=== PATIENT | male | born 1950 | race Caucasian/White ===

== ENCOUNTER 2022-01-10 14:35 | Outpatient (REF) | payer MEDICARE, OTHER, SELFPAY ==
[2022-01-10 15:35] LABS: Estimated Average Glucose 100 mg/dL; Hemoglobin A1c % 5.1 %
[2022-01-10 15:50] LABS: Alanine Aminotransferase 21 U/L (0-40); Albumin Level 4.1 g/dL (3.5-5.0); Alkaline Phosphatase 57 U/L (39-117); Anion Gap 10 (12-20); Aspartate Amino Transferase 29 U/L (5-37); Bilirubin Total 0.7 mg/dL (0.0-1.0); Blood Urea Nitrogen 14 mg/dL (9-16); Calcium 9.5 mg/dL (8.4-10.2); Carbon Dioxide 29 mmol/L (22-29); Chloride 103 mmol/L (96-108); Estimated Glomerular Filt Rate 47; Glucose Random 93 mg/dL (60-115); Magnesium 2.2 mg/dL (1.6-2.6); Potassium 4.4 mmol/L (3.3-5.1); Sodium 138 mmol/L (135-145); Total Protein 6.6 g/dL (6.5-8.0)
[2022-01-10 16:11] LABS: Free T4 (Free Thyroxine) 1.04 ng/dL (0.71-1.85); Thyroid Stimulating Hormone 0.42 uIU/mL (0.32-4.0)
[2022-01-10 16:23] LABS: Folate 19.6 ng/mL (> or = 4.0); Vitamin B12 288 pg/mL (200-900)
[2022-01-16 10:51] LABS: Lamotrigine Lamictal 3.4 mcg/mL (4.0-18.0)
== END 2022-01-10 14:36 | disposition home or self-care (01) ==
LOC: HO.LAB 14:35
PROVIDERS: PCP Internal Medicine; Visit Provider Psychiatry & Neurology Psychiatry
DX: F90.0 Attention-deficit hyperactivity disorder, predominantly inattentive type (principal); G62.9 Polyneuropathy, unspecified; Z79.899 Other long term (current) drug therapy
CPT/HCPCS: 36415; 80053; 80175; 82607; 82746; 83036; 83735; 84439; 84443

== ENCOUNTER → 2022-10-16 09:58 | Outpatient (BNVA) | payer MEDICARE, OTHER, SELFPAY | PROVIDERS: PCP Internal Medicine; Visit Provider Psychiatry & Neurology Psychiatry | DX: F31.9 Bipolar disorder, unspecified (principal); F90.9 Attention-deficit hyperactivity disorder, unspecified type; F41.1 Generalized anxiety disorder; F14.11 Cocaine abuse, in remission; I10 Essential (primary) hypertension | CPT/HCPCS: 90833; 99212 ==

== ENCOUNTER → 2023-01-14 14:14 | Outpatient (BNVA) | payer MEDICARE, OTHER, SELFPAY | PROVIDERS: PCP Internal Medicine; Visit Provider Psychiatry & Neurology Psychiatry | DX: F41.1 Generalized anxiety disorder (principal); I10 Essential (primary) hypertension; F90.9 Attention-deficit hyperactivity disorder, unspecified type; F42.9 Obsessive-compulsive disorder, unspecified | CPT/HCPCS: 90833; 99212 ==

== ENCOUNTER 2023-04-10 13:00 | Outpatient (AMB) | payer MEDICARE, OTHER, SELFPAY ==
--- NOTE | 2023-04-10 13:03 | MHC.OFFVISPS ---
Intake Intake Visit Reasons: Depression Allergies No Known Allergies Allergy (Verified 12/24/22 22:37) Medication List - Last Reconciled 04/10/23 by Dylan Hastings MD amlodipine 5 mg PO gabapentin 600 mg PO TID guanfacine 2 mg PO BEDTIME lamotrigine 300 mg (2 x 150 mg) PO DAILY lisinopril mg PO lorazepam 0.5 - 1 mg (0.5 - 1 x 1 mg) PO DAILY PRN trazodone 100 mg PO BEDTIME HPI- Psychiatric Chief Complaint: Depression HPI Narrative: Pt has been revved up concerned about sexual fx no ejaculation when he has sex he became preoccupied with this somewhat more impulsive did see Dr. Gonzalez min his urologist recently. This has been a gradual issue and he was blaming his partner for the lack of and ejaculate in and he became preoccupied loss of his sexual functioning and his identity as male. Mood otherwise generally okay periods of agitation today alonzo impulsivity usually very helped by guanfacine Past Psychiatric History: The patient has a history of ADHD history of impulsivity past impulsive behaviors history of cocaine and alcohol use has been stable on a combination of guanfacine Lamictal Mental Status Exam Mental Status Exam Narrative: Mental Status Exam Narrative: Appearance: Casually dressed Behavior: Cooperative appropriate psychomotor: inc energy Speech: mildly pressured Thought proccess goal-directed perseveration regarding sexual functioning aging Thought content: Future oriented tends to worry and ruminate ongoing Mood: Anxious Affect: Appropriate to mood full affect SI:denies HI:denies VH/AH:none Delusions: None Insight/judgment: Insight and judgment at times impaired regarding sexual impulsivity Memory/cog: Intact Assessment and Plan Assessment & Plan (1) Generalized anxiety disorder: Status: Acute Code(s): F41.1 - Generalized anxiety disorder (2) Bipolar disorder, unspecified: Status: Acute Code(s): F31.9 - Bipolar disorder, unspecified (3) ADHD: Status: Acute Code(s): F90.9 - Attention-deficit hyperactivity disorder, unspecified type Plan Patient generally stable needed lot of education regarding sexual functioning with the aging difficulty with decreased ejaculate urged patient to have an honest discussion with his urologist. Patient did have episode of sexual impulsivity which led him to a potentially dangerous situation in the past would been associated with drugs and alcohol. Strongly urged patient to look at his behavior and potential risks of drugs and alcohol if he were to return to that environment in mind set patient does state he continues to be sober he is on a combination gabapentin for neuropathy which hopefully will also help with anxiety impulsivity lamotrigine guanfacine which has been quite helpful for impulsivity and low-dose p.r.n. lorazepam with no evidence of abuse or tolerance Counseling and coordination of Care Pt. Self Management counseling: Breathing, Exercise and Behavior activation Details-Self Mgmt counseling: Needed much reassurance Education regarding sexual functioning with aging impact potentially of medications in ways to hopefully psychologically and physically adapt to the aging process. Continue regular walking her trance of other healthy behaviors. Patient in general is much less impulsive agitated better ability to stay present sits still than he has for most of his life Diagnosis and Prognosis Counseling: Impact of diagnosis on life functions and Adequacy of current interventions Details: I spent [38] minutes reviewing the record, seeing the patient and documenting in the medical record. Counseling provided to the patient/caregiver as outlined below. Addressed patient/caregiver concerns regarding current medication regime including effective adherence. Addressed patient/caregiver concerns regarding diagnosis and prognosis including accuracy of diagnosis, prognosis over time, impact of diagnosis. Addressed patient/caregiver concerns regarding impact of recent stressors. 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 HAD [place] AND QUESTION OF CVA IN THE PAST STATUS POST COCAINE INTOXICATION HAS BEEN SOBER Trauma History: NA Coding Level of Care Code Est Pt Level 3 (17972) Therapy 30m w/E&M (07823) Diagnoses Generalized anxiety disorder F41.1 Bipolar disorder, unspecified F31.9 ADHD F90.9
== END 2023-04-10 13:48 | disposition home or self-care (01) ==
LOC: HO.HOP 13:00
PROVIDERS: PCP Internal Medicine; Visit Provider Psychiatry & Neurology Psychiatry
DX: F41.1 Generalized anxiety disorder (principal); F31.9 Bipolar disorder, unspecified; F90.9 Attention-deficit hyperactivity disorder, unspecified type
CPT/HCPCS: 90833; 99213

== ENCOUNTER → 2023-04-10 13:00 | Outpatient (BNVA) | payer MEDICARE, OTHER, SELFPAY | PROVIDERS: PCP Internal Medicine; Visit Provider Psychiatry & Neurology Psychiatry | DX: F31.9 Bipolar disorder, unspecified (principal); F41.1 Generalized anxiety disorder; F90.9 Attention-deficit hyperactivity disorder, unspecified type | CPT/HCPCS: 90833; 99212 ==

== ENCOUNTER 2023-10-30 16:49 | Outpatient (AMB) | payer MEDICARE, OTHER, SELFPAY ==
--- NOTE | 2023-10-30 15:07 | MHC.OFFVISPS ---
Intake Intake Visit Reasons: Depression Allergies No Known Allergies Allergy (Verified 12/24/22 22:37) HPI- Psychiatric Chief Complaint: Depression HPI Narrative: Patient with history of mood instability impulsive behavior prior history of substance abuse. Patient has generally been stable there some recent issues of sexual impulsivity does not appear manic denies current substance not overly depressed. Patient has significant history of ADHD with impulsivity Has chronically associated sexual relations more for been type encounters Past Psychiatric History: The patient has a history of ADHD history of impulsivity past impulsive behaviors history of cocaine and alcohol use has been stable on a combination of guanfacine Lamictal Mental Status Exam Mental Status Exam Narrative: Mental Status Exam Narrative: Appearance: Casually dressed Behavior: Cooperative psychomotor: inc energy Speech: mildly pressured Thought proccess goal-directed perseveration Thought content: Future oriented tends to worry about sexual functioning recent behavior Mood: Anxious Affect: Appropriate to mood full affect SI:denies HI:denies VH/AH:none Delusions: None Insight/judgment: Insight and judgment at times impaired regarding some behavior Memory/cog: Intact Assessment and Plan Assessment & Plan (1) OCD (obsessive compulsive disorder): Status: Acute Code(s): F42.9 - Obsessive-compulsive disorder, unspecified (2) Generalized anxiety disorder: Status: Acute Code(s): F41.1 - Generalized anxiety disorder (3) ADHD: Status: Acute Code(s): F90.9 - Attention-deficit hyperactivity disorder, unspecified type (4) Bipolar disorder, unspecified: Status: Acute Code(s): F31.9 - Bipolar disorder, unspecified Plan Discussed impulsivity use of guanfacine to decrease impulsivity certain recent problematic and judgmental behaviors. Patient was able to hear continue chronic exercise which quite helpful Lamictal 300 mg chest regularly use clubbing half tab morning patient appears to have some anxiety regarding aging Medications: Refilled lamotrigine 300 mg (2 x 150 mg) PO DAILY 180 tabs 1RF guanfacine 1 bedtime 1/2 tab daily prn 2 mg PO BEDTIME 135 tabs 1RF Counseling and coordination of Care Pt. Self Management counseling: Breathing and Exercise Medication management counseling: Effectiveness, Side effects and Dosing range Diagnosis and Prognosis Counseling: Problematic behaviors secondary to diagnosis and Adequacy of current interventions Details: I spent [35] minutes reviewing the record, seeing the patient and documenting in the medical record. Counseling provided to the patient/caregiver as outlined below. Addressed patient/caregiver concerns regarding current medication regime including effective adherence. Addressed patient/caregiver concerns regarding diagnosis and prognosis including accuracy of diagnosis, prognosis over time, impact of diagnosis. Addressed patient/caregiver concerns regarding impact of recent stressors. 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 HAD [place] AND QUESTION OF CVA IN THE PAST STATUS POST COCAINE INTOXICATION HAS BEEN SOBER Trauma History: NA Coding Level of Care Code Est Pt Level 3 (47704) Therapy 30m w/E&M (97862) Diagnoses OCD (obsessive compulsive disorder) F42.9 Generalized anxiety disorder F41.1 ADHD F90.9 Bipolar disorder, unspecified F31.9
== END 2023-10-30 16:50 | disposition home or self-care (01) ==
LOC: HO.HOP 16:49
PROVIDERS: PCP Internal Medicine; Visit Provider Psychiatry & Neurology Psychiatry
DX: F42.9 Obsessive-compulsive disorder, unspecified (principal); F41.1 Generalized anxiety disorder; F90.9 Attention-deficit hyperactivity disorder, unspecified type; F31.9 Bipolar disorder, unspecified
CPT/HCPCS: 90833; 99213

== ENCOUNTER → 2023-10-30 16:49 | Outpatient (BNVA) | payer MEDICARE, OTHER, SELFPAY | PROVIDERS: PCP Internal Medicine; Visit Provider Psychiatry & Neurology Psychiatry | DX: F42.9 Obsessive-compulsive disorder, unspecified (principal); F41.1 Generalized anxiety disorder; F90.9 Attention-deficit hyperactivity disorder, unspecified type; F31.9 Bipolar disorder, unspecified | CPT/HCPCS: 99212 ==

== ENCOUNTER 2024-01-29 13:42 | Outpatient (AMB) | payer MEDICARE, OTHER, SELFPAY ==
--- NOTE | 2024-01-29 14:34 | MHC.OFFVISPS ---
Intake Intake Visit Reasons: Depression Allergies No Known Allergies Allergy (Verified 12/24/22 22:37) HPI- Psychiatric Chief Complaint: Depression HPI Narrative: Patient seen psychiatric follow-up. The patient's mood has generally been stable future oriented continues to miss older life associated with drinking and has sexual functioning but remained stable and sober. Past history of impulsive behavior generally held in check. He does enjoy daily walking and time in nature which when he becomes tired is quite satisfying for him he remains on Lamictal guanfacine intermittent use of lorazepam for anxiety agitation denies any active drinking or cocaine use Past Psychiatric History: The patient has a history of ADHD history of impulsivity past impulsive behaviors history of cocaine and alcohol use has been stable on a combination of guanfacine Lamictal Mental Status Exam Mental Status Exam Narrative: Mental Status Exam Narrative: Appearance: Casually dressed Behavior: Cooperative psychomotor: inc energy Speech: mildly pressured Thought proccess goal-directed Thought content: Future orient perseveration regarding his past and managing his present anxiety and impulsivity with different techniques Mood: Good some anxiety Affect: Appropriate to mood full affect SI:denies HI:denies VH/AH:none Delusions: None Insight/judgment: Insight and judgment at times impaired regarding potential risky behavior Memory/cog: Intact Assessment and Plan Assessment & Plan (1) OCD (obsessive compulsive disorder): Status: Acute Code(s): F42.9 - Obsessive-compulsive disorder, unspecified (2) Generalized anxiety disorder: Status: Acute Code(s): F41.1 - Generalized anxiety disorder (3) Bipolar disorder, unspecified: Status: Acute Code(s): F31.9 - Bipolar disorder, unspecified Plan Continue lamotrigine trazodone guanfacine patient also on gabapentin for neuropathy discussed interpersonal issues in relationship to his marriage Medications: Refilled lamotrigine 300 mg (2 x 150 mg) PO DAILY 180 tabs 1RF trazodone 100 mg PO BEDTIME 90 tabs 1RF Counseling and coordination of Care Pt. Self Management counseling: General coping skills Medication management counseling: Effectiveness and Side effects Diagnosis and Prognosis Counseling: Adequacy of current interventions Details: I spent [37] minutes reviewing the record, seeing the patient and documenting in the medical record. Counseling provided to the patient/caregiver as outlined below. Addressed patient/caregiver concerns regarding current medication regime including effective adherence. Addressed patient/caregiver concerns regarding diagnosis and prognosis including accuracy of diagnosis, prognosis over time, impact of diagnosis. Addressed patient/caregiver concerns regarding impact of recent stressors. 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 HAD [place] AND QUESTION OF CVA IN THE PAST STATUS POST COCAINE INTOXICATION HAS BEEN SOBER Trauma History: NA Coding Level of Care Code Est Pt Level 3 (79969) Therapy 30m w/E&M (15078) Diagnoses OCD (obsessive compulsive disorder) F42.9 Generalized anxiety disorder F41.1 Bipolar disorder, unspecified F31.9
== END 2024-01-29 17:07 | disposition home or self-care (01) ==
LOC: HO.HOP 13:42
PROVIDERS: PCP Internal Medicine; Visit Provider Psychiatry & Neurology Psychiatry
DX: F42.9 Obsessive-compulsive disorder, unspecified (principal); F41.1 Generalized anxiety disorder; F31.9 Bipolar disorder, unspecified
CPT/HCPCS: 90833; 99213

== ENCOUNTER → 2024-01-29 13:42 | Outpatient (BNVA) | payer MEDICARE, OTHER, SELFPAY | PROVIDERS: PCP Internal Medicine; Visit Provider Psychiatry & Neurology Psychiatry | DX: F42.9 Obsessive-compulsive disorder, unspecified (principal); F41.1 Generalized anxiety disorder; F31.9 Bipolar disorder, unspecified | CPT/HCPCS: 99212 ==

== ENCOUNTER 2024-05-14 13:53 | Outpatient (AMB) | payer MEDICARE, OTHER, SELFPAY ==
--- OUTSIDE RECORDS SUMMARY | 2024-05-14 13:54 | XMS_ITS | Continuity of Care Document ---
Author Organization [facility] Address [address] [facility], [address] Floor, [address] [place] [phone]- Care Team Providers Care Party Supply Specialist Name Role Phone Matthias GAFFNEY, Lucian Alarcon Primary Care Physician Encounter [facility] Date(s): 10/31/23 - 11/30/23 [facility] [address] [facility], [address]rd Floor, [address] [place] [id number] Allergies, Adverse Reactions, Alerts No Known Allergies Immunizations Given and Recorded Vaccine Date Status Refusal Reason SARS-CoV-2 (COVID-19) mRNA BNT-162b2 vac 09/11/21 Recorded SARS-CoV-2 (COVID-19) mRNA BNT-162b2 vac 01/10/21 Recorded SARS-CoV-2 (COVID-19) mRNA BNT-162b2 vac 12/20/20 Recorded influenza virus vaccine, inactivated 07/19/21 Vu rded influenza virus vaccine, inactivated 08/07/18 Vu rded influenza virus vaccine, inactivated 07/07/18 Vu rded influenza virus vaccine, inactivated 07/11/17 Vu rded influenza virus vaccine, inactivated 1 07/07/17 Re corded influenza virus vaccine, inactivated 07/17/16 Vu rded influenza virus vaccine, inactivated 2 08/07/13 Gi qamar influenza virus vaccine, inactivated 06/22/09 Give n zoster vaccine, inactivated 09/04/20 Recorded zoster vaccine, inactivated 05/21/20 Recorded zoster vaccine, inactivated 08/02/19 Recorded Influenza Virus Vaccine (oldterm) 07/07/20 Recorde d Influenza Virus Vaccine (oldterm) 07/07/19 Recorde d Influenza Virus Vaccine (oldterm) 3 07/26/08 Given Influenza Virus Vaccine (oldterm) 4 07/29/07 Given pneumococcal 23-valent vaccine 12/30/19 Given pneumococcal 23-valent vaccine 10/20/14 Given Prevnar Inj (oldterm) 12/20/17 Given tetanus/diphtheria/pertussis, acel(Tdap) 07/12/17 Recorded Influenza Vaccine (oldterm) 5 07/02/15 Recorded Influenza Vaccine (oldterm) 6 07/02/15 Recorded Fluarix (oldterm) 7 07/17/14 Recorded Zostavax (oldterm) 08/17/13 Recorded Fluzone (oldterm) 07/13/11 Given FluLaval (oldterm) 08/11/10 Given Tet/Diphth/Acel, Pertussis (oldterm) 11/02/09 Give n diphtheria-tetanus toxoids (DT) 05/30/99 Given 1Result Comment: [12/13/2017] [facility] 3Admin Note: [employer] P[employer] 4Admin Note: SANOFI PASTEUR [facility] 6[facility] 7Result Comment: [07/22/2014] [facility] Medications amLODIPine 5 mg oral tablet 1 tablet, By Mouth, Daily, # 90 tablet, 1 Refills, Maintenance, 02/28/23 10:47:00 EDT, [facility] Mail Delivery, 183, cm, 01/31/23 15:19:00 EDT, Height Start Date: 02/28/23 Status: Ordered aspirin 81 mg oral tablet 81, mg, 1, tablet, By Mouth, Daily, 0, 0, 10/20/08 8:13:28, Print HARRY Number, [id number], Constant Indicator Start Date: 10/20/08 Status: Ordered diclofenac sodium 75 mg oral delayed release tablet 1 tablet = 75 mg, By Mouth, 2 times a day, # 14 tablet, 0 Refills, Maintenance, 06/20/23 13:50:00 EDT, EC Tablet, [facility]/pharmacy #[id number], Partial fill upon patient request if the prescription is for a schedule II opioid drug., 183, cm, 06/05/23 11:26:00 E... Start Date: 06/20/23 Stop Date: 06/27/23 Status: Ordered docusate sodium 100 mg oral capsule 100 mg, 1, capsule, By Mouth, 2 times a day, PRN, # 14 capsule, Refills 0, Tot. Refills 0, Maintenance, for constipation, 06/12/23 9:34:00 EDT, Route to Pharmacy Electronically, [facility]/pharmacy #[id number], Partial fill upon patient request if the prescription... Start Date: 06/12/23 Stop Date: 06/19/23 Status: Ordered gabapentin 800 mg oral tablet 1 tablet, By Mouth, 3 times a day, # 270 tablet, 1 Refills, Maintenance, 05/13/23 13:47:00 EDT, [facility] Mail Delivery, 183, cm, 04/04/23 8:06:00 EDT, Height Start Date: 05/13/23 Status: Ordered guanFACINE 2 mg oral tablet 1 tablet = 2 mg, By Mouth, Daily at bedtime, # 30 tablet, 0 Refills, Maintenance, 09/27/22 14:41:00EST, Tablet, Partial fill upon patient request if the prescription is for a schedule II opioid drug. Start Date: 09/27/22 Status: Ordered lamotrigine 150 mg oral tablet 1 tablet = 150 mg, By Mouth, 2 times a day, # 60 tablet, 0 Refills, Maintenance, 09/27/22 14:42:00 EST, Tablet, Partial fill upon patient request if the prescription is for a schedule II opioid drug. Start Date: 09/27/22 Status: Ordered lisinopril 30 mg oral tablet 1 tablet, By Mouth, Daily, # 90 tablet, 1 Refills, Maintenance, 11/25/23 0:55:00 EST, [facility] Mail Delivery, 183, cm, 11/11/23 15:35:00 EST, Height Start Date: 11/25/23 Status: Ordered LORazepam 1 mg oral tablet TAKE 1/2-1 TABLET ORALLY DAILY NEEDED FOR ANXIETY *DNF UNTIL 08/27 Start Date: 09/27/22 Status: Ordered multivitamin Therapeutic Multiple Vitamins oral tablet 1, tablet, By Mouth, Daily, 0, 0, 10/20/08 8:14:05, Print HARRY Number, [id number], Constant Indicator Start Date: 10/20/08 Status: Ordered pantoprazole 40 mg oral delayed release tablet 1 tablet, By Mouth, 2 times a day, # 180 tablet, 0 Refills, Maintenance, 11/03/23 18:28:00 EST, 183, cm, 06/05/23 11:26:00 EDT, Height Start Date: 11/03/23 Status: Ordered traZODone 100 mg oral tablet Daily at bedtime, Refills 0, Maintenance, 09/27/22 14:42:00 EST, Partial fill upon patient request if the prescription is for a schedule II opioid drug. Start Date: 09/27/22 Status: Ordered Vitamin C = 500 mg, 0 Refills, Maintenance, 12/03/12 16:55:50 Start Date: 12/03/12 Status: Ordered Vitamin D3 2000 intl units oral capsule 1 capsule = 2,000 International_Units, By Mouth, Daily, 0 Refills, Maintenance, 05/23/15 8:31:57 Start Date: 05/23/15 Status: Ordered Problem List Condition Confirmation Course Effective Dates Status H ealth Status Informant Gastroesophageal reflux disease with hiatal hernia Confirmed Active Headache disorder Confirmed Active HTN (hypertension) Confirmed 11/07/09 Active Skin lesion of face Confirmed Active Obstructive sleep apnea syndrome Confirmed 10/27/05 Active Overweight Confirmed Active Neuropathic pain of lower extremity, bilateral. EMG abnormal 12/2021. On gabapentin Confirmed Active Peyronie's Disease Confirmed 1998 Active Social History Social History Type Response Smoking Status Never smoker entered on: 10/19/14 Sex Patient Care team information Care Team Personnel Name: Lucian Rizzo MD Position: S Physician - Primary Care Member Role: PCP Address: Address: [address] [place] [phone]- Care Team Related Persons Name: JOON GONZALEZ Address: home [address] [place] [id number] Name: MOO GONZALEZ Address: home [address] [place] [address] Name: TASHIA LEÓN Address: home [address] [place] [address]
--- OUTSIDE RECORDS SUMMARY | 2024-05-14 13:54 | XMS_ITS | Continuity of Care Document ---
Author Organization [facility] Address [address] [place] [phone]- Care Team Providers Care Senior Game Advisor Name Role Phone Matthias GAFFNEY, Lucian Alarcon Primary Care Physician [facility] Date(s): 07/14/21 - 08/13/21 [facility] [address] [place] [phone] [place] Allergies, Adverse Reactions, Alerts Substance Reaction Severity Status NKA Active Immunizations Given and Recorded Vaccine Date Status Refusal Reason SARS-CoV-2 (COVID-19) mRNA BNT-162b2 vac 01/10/21 Recorded SARS-CoV-2 (COVID-19) mRNA BNT-162b2 vac 12/20/20 Recorded zoster vaccine, inactivated 09/04/20 Recorded zoster vaccine, inactivated 08/02/19 Recorded Influenza Virus Vaccine (oldterm) 07/07/20 Recorde d Influenza Virus Vaccine (oldterm) 07/07/19 Recorde d Influenza Virus Vaccine (oldterm) 1 07/26/08 Given Influenza Virus Vaccine (oldterm) 2 07/29/07 Given pneumococcal 23-valent vaccine 12/30/19 Given pneumococcal 23-valent vaccine 10/20/14 Given influenza virus vaccine, inactivated 08/07/18 Vu rded influenza virus vaccine, inactivated 07/07/18 Vu rded influenza virus vaccine, inactivated 07/11/17 Vu rded influenza virus vaccine, inactivated 3 07/07/17 Re corded influenza virus vaccine, inactivated 07/17/16 Vu rded influenza virus vaccine, inactivated 4 08/07/13 Gi qamar influenza virus vaccine, inactivated 06/22/09 Give n Prevnar Inj (oldterm) 12/20/17 Given tetanus/diphtheria/pertussis, acel(Tdap) 07/12/17 Recorded Influenza Vaccine (oldterm) 5 07/02/15 Recorded Influenza Vaccine (oldterm) 6 07/02/15 Recorded Fluarix (oldterm) 7 07/17/14 Recorded Zostavax (oldterm) 08/17/13 Recorded Fluzone (oldterm) 07/13/11 Given FluLaval (oldterm) 08/11/10 Given Tet/Diphth/Acel, Pertussis (oldterm) 11/02/09 Give n diphtheria-tetanus toxoids (DT) 05/30/99 Given 1Admin Note: Sanofi Pasteur 2Admin Note: SANOFI PASTEUR 3Result Comment: [12/13/2017] [facility] 7Result Comment: [07/22/2014] [facility] Medications aspirin 81 mg oral tablet 81, mg, 1, tablet, By Mouth, Daily, 0, 0, 10/20/08 8:13:28, Print HARRY Number, [id number], Constant Indicator Start Date: 10/20/08 Status: Ordered Biotin By Mouth, Daily, 0 Refills, Maintenance, 05/23/15 8:30:16 Start Date: 05/23/15 Status: Ordered Fish Oil = 1,000 mg, By Mouth, 0 Refills, Maintenance Start Date: 12/03/12 Status: Ordered multivitamin Therapeutic Multiple Vitamins oral tablet 1, tablet, By Mouth, Daily, 0, 0, 10/20/08 8:14:05, Print HARRY Number, [id number], Constant Indicator Start Date: 10/20/08 Status: Ordered trazodone 100 mg oral tablet 100, mg, 1, tablet, By Mouth, Daily at bedtime, 0, 0, 10/20/08 8:13:45, Print HARRY Number, [id number], Constant Indicator Start Date: 10/20/08 Status: Ordered Vitamin C = 500 mg, 0 Refills, Maintenance, 12/03/12 16:55:50 Start Date: 12/03/12 Status: Ordered Vitamin D3 2000 intl units oral capsule 1 capsule = 2,000 International_Units, By Mouth, Daily, 0 Refills, Maintenance, 05/23/15 8:31:57 Start Date: 05/23/15 Status: Ordered Problem List Condition Effective Dates Status Health Status Inform ant Gastroesophageal reflux dise ase with hiatal hernia(Confirmed) Active Headache disorder(Confirmed) Active HTN (hypertension)(Confirmed) 11/07/09 Active Skin lesion of face(Confirmed) Active Obstructive sleep apnea syndrome(Confirmed) 10/27/05 Active Overweight(Confirmed) Active Neuropathic pain of lower ex tremity, bilateral. Declines EMG(Confirmed) Active Peyronie's Disease(Confirmed) 1998 Active Social History Social History Type Response Smoking Status Never smoker entered on: 10/19/14 Sex
--- OUTSIDE RECORDS SUMMARY | 2024-05-14 13:54 | XMS_ITS | Continuity of Care Document ---
Author Organization [facility] romy Address [address] [place], [place] [address] ve [address] [place] [address]- Care Team Providers Care Gas Turbine Powerplant Mechanic Name Role Phone Lucian Rizzo MD Primary Care Physician [facility] Date(s): 09/23/19 - 11/04/19 [facility] [address] [place] [address]- [facility] Attending Physician: Dang Putnam Referring Physician: Lucian Rizzo MD Allergies, Adverse Reactions, Alerts Substance Reaction Severity Status NKA Active Immunizations Given and Recorded Vaccine Date Status Refusal Reason influenza virus vaccine, inactivated 07/07/18 Vu rded influenza virus vaccine, inactivated 1 07/07/17 Re corded influenza virus vaccine, inactivated 07/17/16 Vu rded influenza virus vaccine, inactivated 2 08/07/13 Gi qamar influenza virus vaccine, inactivated 06/22/09 Give n Prevnar Inj (oldterm) 12/20/17 Given Influenza Vaccine (oldterm) 3 07/02/15 Recorded Influenza Vaccine (oldterm) 4 07/02/15 Recorded pneumococcal 23-valent vaccine 10/20/14 Given Fluarix (oldterm) 5 07/17/14 Recorded Zostavax (oldterm) 08/17/13 Recorded Fluzone (oldterm) 07/13/11 Given FluLaval (oldterm) 08/11/10 Given Tet/Diphth/Acel, Pertussis (oldterm) 11/02/09 Give n Influenza Virus Vaccine (oldterm) 6 07/26/08 Given Influenza Virus Vaccine (oldterm) 7 07/29/07 Given diphtheria-tetanus toxoids (DT) 05/30/99 Given 1Result Comment: [[facility] 3Location [facility]: [facility] 4Location History: [facility] 5Result Comment: [07/22/2014] [facility] 6Admin Note: Sanofi Pasteur 7Admin Note: SANOFI PASTEUR Medications aspirin 81 mg oral tablet 81, mg, 1, tablet, By Mouth, Daily, 0, 0, 10/20/08 8:13:28, Print HARRY Number, [id number], Constant Indicator Start Date: 10/20/08 Status: Ordered Biotin By Mouth, Daily, 0 Refills, Maintenance, 05/23/15 8:30:16 Start Date: 05/23/15 Status: Ordered Fish Oil = 1,000 mg, By Mouth, 0 Refills, Maintenance Start Date: 12/03/12 Status: Ordered guanfacine 1 mg oral tablet 2 tablet = 2 mg, By Mouth, Daily at bedtime, # 30 tablet, 0 Refills, Maintenance, 08/11/10 14:45:10, Tablet Start Date: 08/11/10 Status: Ordered Lamictal Tablet 200 mg, By Mouth, Daily at bedtime, Refills 0, Tot. Refills 0, 10/20/08 8:12:34 Start Date: 10/20/08 Status: Ordered LORazepam 0.5 mg oral tablet TAKE 1 TABLET BY MOUTH EVERY DAY NOT DURING WORKDAY Start Date: 09/16/19 Status: Ordered multivitamin Therapeutic Multiple Vitamins oral tablet 1, tablet, By Mouth, Daily, 0, 0, 10/20/08 8:14:05, Print HARRY Number, [id number], Constant Indicator Start Date: 10/20/08 Status: Ordered [...] Effective Dates Status Health Status Inform ant Bipolar disorder(Confirmed) 2007 Active Gastroesophageal reflux dise ase with hiatal hernia(Confirmed) Active Headache disorder(Confirmed) Active HTN (hypertension)(Confirmed) 11/07/09 Active Skin lesion of face(Confirmed) Active Obstructive sleep apnea syndrome(Confirmed) 10/27/05 Active Overweight(Confirmed) Active Peyronie's Disease(Confirmed) 1998 Active Social History Social History Type Response Smoking Status Never smoker entered on: 10/19/14 Sex
--- OUTSIDE RECORDS SUMMARY | 2024-05-14 13:54 | XMS_ITS | Continuity of Care Document ---
Author Organization [facility] romy Address [address] [place], [place] [address] [place] [address] [place] [address]- Care Team Providers Care Nocturnist Name Role Phone Matthias GAFFNEY, Lucian Alarcon Primary Care Physician [facility] Date(s): 12/02/19 - 12/12/19 [facility] [address] [place] [address]- [facility] Attending Physician: Olaf Marsh Admitting Physician: AdmOlaf stratton Referring Physician: AdmtrOlaf Allergies, Adverse Reactions, Alerts Substance Reaction Severity Status NKA Active Immunizations Given and Recorded Vaccine Date Status Refusal Reason influenza virus vaccine, inactivated 07/07/18 Uv rded influenza virus vaccine, inactivated 1 07/07/17 [...] toxoids (DT) 05/30/99 Given 1Result Comment: [12/13/2017] [facility] 2Admin Note: [facility] 3Location History: [facility] 4Location History: [facility] 5Result Comment: [07/22/2014] [facility] 6Admin Note: Sanofi Pasteur 7Admin Note: SANOFI PASTEUR Medications aspirin 81 mg oral tablet 81, mg, 1, tablet, By Mouth, Daily, 0, 0, 10/20/08 8:13:28, Print HARRY Number, [id number], Constant Indicator Start Date: 10/20/08 Status: Ordered [...] 0, 0, 10/20/08 8:14:05, Print HARRY Number, [id number], Constant Indicator Start Date: 10/20/08 Status: Ordered [...]
--- OUTSIDE RECORDS SUMMARY | 2024-05-14 13:54 | XMS_ITS | Continuity of Care Document ---
Author Organization [facility] ialty Address [address] [place] [address]- Care Team Providers Care Travelers' Aid Worker Name Role Phone Matthias GAFFNEY, Lucian Alarcon Primary Care Physician Encounter [facility] Date(s): 11/17/19 - 11/24/19 [facility] [address] [place] [address]- [facility] Attending Physician: Dang Putnam Referring Physician: Lucian [...] toxoids (DT) 05/30/99 Given 1Result Comment: [12/13/2017] [facility] [place] 2Admin Note: [facility] 3Location History: [facility] 4Location History: [facility] 5Result Comment: [07/22/2014] [facility] 6Admin Note: Sanofi Pasteur 7Admin Note: SANOFI PASTEUR Medications aspirin 81 mg oral tablet 81, mg, 1, tablet, By Mouth, Daily, 0, 0, 10/20/08 8:13:28, Print HARRY Number, [id number], Constant Indicator Start Date: 10/20/08 Status: Ordered [...] 0, 0, 10/20/08 8:14:05, Print HARRY Number, [id number], Constant Indicator Start Date: 10/20/08 Status: Ordered [...] Active Overweight(Confirmed) Active Peyronie's Disease(Confirmed) 1998 Active Vital Signs Most recent to oldest [Reference Range]: 1 Height 183 cm (11/17/19 11:33 AM) Social History Social History Type Response Smoking Status Never smoker entered on: 10/19/14 Sex
--- OUTSIDE RECORDS SUMMARY | 2024-05-14 13:54 | XMS_ITS | Continuity of Care Document ---
Author Organization [facility] Address [address], [address] Floor, [address] [place] [address]- Care Team Providers Care Ear Machine Operator Name Role Phone Matthias GAFFNEY, Lucian Alarcon Primary Care Physician En[place] [facility] Date(s): 11/11/23 - 12/11/23 [facility] [address], 3rd Floor, [address] [place] [address] Attending Physician: AdmOlaf stratton Admitting Physician: Admtr, Ar8 Referring Physician: Admtr, Ar8 Allergies, Adverse Reactions, Alerts No Known Allergies [...] toxoids (DT) 05/30/99 Given 1Result Comment: [12/13/2017] [facility] [place] 2Admin Note: [facility] 3Admin Note: Sanofi Pasteur 4Admin Note: SANOFI PASTEUR 5Location History: [facility] 6Location History: [facility] 7Result Comment: [07/22/2014] [facility] Medications amLODIPine 5 mg oral tablet 1 tablet, By Mouth, Daily, # 90 tablet, 1 Refills, Maintenance, 02/28/23 10:47:00 EDT, [facility], 183, cm, 01/31/23 15:19:00 EDT, Height Start Date: 02/28/23 Status: Ordered aspirin 81 mg oral tablet 81, mg, 1, tablet, By Mouth, Daily, 0, 0, 10/20/08 8:13:28, Print HARRY Number, [id number], Constant Indicator Start Date: 10/20/08 Status: Ordered diclofenac sodium 75 mg oral delayed release tablet 1 tablet = 75 mg, By Mouth, 2 times a day, # 14 tablet, 0 Refills, Maintenance, 06/20/23 13:50:00 EDT, EC Tablet, [facility]/pharmacy #[id number], Partial fill upon patient request if [...] 06/12/23 9:34:00 EDT, Route to Pharmacy Electronically, [facility]/pharmacy #[id number], Partial fill upon patient request if the prescription... Start Date: 06/12/23 Stop Date: 06/19/23 Status: Ordered gabapentin 800 mg oral tablet 1 tablet, By Mouth, 3 times a day, # 270 tablet, 1 Refills, Maintenance, 05/13/23 13:47:00 EDT, [facility], 183, cm, 04/04/23 8:06:00 [...] tablet, 1 Refills, Maintenance, 11/25/23 0:55:00 EST, [facility], 183, cm, 11/11/23 15:35:00 EST, Height Start Date: 11/25/23 Status: Ordered LORazepam 1 mg oral tablet TAKE 1/2-1 TABLET ORALLY DAILY NEEDED FOR ANXIETY *DNF UNTIL 08/27 Start Date: 09/27/22 Status: Ordered multivitamin Therapeutic Multiple Vitamins oral tablet 1, tablet, By Mouth, Daily, 0, 0, 10/20/08 8:14:05, Print HARRY Number, [id number], Constant Indicator Start Date: 10/20/08 Status: Ordered [...] Care team information Care Team Personnel Name: Matthias GAFFNEY, Lucian Alarcon Position: S Physician - Primary Care Member Role: PCP Address: Address: [address] [place] [address]- Care Team Related Persons Name: OJON GONZALEZ Address: home [address] [place] [address] Name: MOO GONZALEZ Address: [address] [place] [address] Name: TASHIA LEÓN Address: home [address] [place] [address]
--- OUTSIDE RECORDS SUMMARY | 2024-05-14 13:54 | XMS_ITS | Continuity of Care Document ---
Author Organization [facility] romy Address [address] [place], [place] [address] ve [address] [place] [address]- Care Team Providers Care Digital Forensics Investigator Name Role Phone Lucian Rizzo MD Primary Care Physician [facility] Date(s): 10/14/19 - 01/01/20 [facility] [address] [place] [address]- [facility] Attending Physician: Tal Duarte MD Referring Physician: Lucian Rizzo MD Allergies, Adverse Reactions, Alerts Substance Reaction Severity Status NKA Active Immunizations Given and Recorded Vaccine Date Status Refusal Reason pneumococcal 23-valent vaccine 12/30/19 Given pneumococcal 23-valent vaccine 10/20/14 Given zoster vaccine, inactivated 08/02/19 Recorded Influenza Virus Vaccine (oldterm) 07/07/19 Recorde d Influenza Virus Vaccine (oldterm) 1 07/26/08 Given Influenza Virus Vaccine (oldterm) 2 07/29/07 Given influenza virus vaccine, inactivated 07/07/18 Vu rded influenza virus vaccine, inactivated 3 07/07/17 Re corded influenza virus vaccine, inactivated 07/17/16 Vu rded influenza virus vaccine, inactivated 4 08/07/13 Gi qamar influenza virus vaccine, inactivated 06/22/09 Give n Prevnar Inj (oldterm) 12/20/17 Given Influenza Vaccine (oldterm) 5 07/02/15 Recorded Influenza Vaccine (oldterm) 6 07/02/15 Recorded Fluarix (oldterm) 7 07/17/14 Recorded Zostavax (oldterm) 08/17/13 Recorded Fluzone (oldterm) 07/13/11 Given FluLaval (oldterm) 08/11/10 Given Tet/Diphth/Acel, Pertussis (oldterm) 11/02/09 Give n diphtheria-tetanus toxoids (DT) 05/30/99 Given 1Admin Note: Sanofi Pasteur 2Admin Note: SANOFI PASTEUR 3Result Comment: [12/13/2017] [facility] 4Admin Note: [facility] 5Location History: [facility] 6Location History: [facility] 7Result Comment: [07/22/2014] [facility] Medications aspirin 81 mg oral tablet 81, mg, 1, tablet, By Mouth, Daily, 0, 0, 10/20/08 8:13:28, Print HARRY Number, [id number], Constant Indicator Start Date: 10/20/08 Status: Ordered [...] 0, 0, 10/20/08 8:14:05, Print HARRY Number, [id number], Constant Indicator Start Date: 10/20/08 Status: Ordered [...]
--- OUTSIDE RECORDS SUMMARY | 2024-05-14 13:54 | XMS_ITS | Continuity of Care Document ---
Author Organization [facility] Address Unknown Care Team Providers Care Orchid Superintendent Name Role Phone Matthias GAFFNEY, Lucian Alarcon Primary Care Physician [place] [facility] - 03/22/22 [facility] Allergies, Adverse Reactions, Alerts No Known Allergies [...] acel(Tdap) 07/12/17 Recorded Influenza Vaccine (oldterm) 5 9/26/15 Recorded Influenza Vaccine (oldterm) 6 07/02/15 Recorded Fluarix (oldterm) 7 07/17/14 Recorded Zostavax (oldterm) 08/17/13 Recorded Fluzone (oldterm) 07/13/11 Given FluLaval (oldterm) 08/11/10 Given Tet/Diphth/Acel, Pertussis (oldterm) 11/02/09 Give n diphtheria-tetanus toxoids (DT) 05/30/99 Given 1Result Comment: [12/13/2017] [facility] 2Admin Note: [facility] 3Admin Note: Sanofi Pasteur 4Admin Note: SANOFI PASTEUR 5Location History: [facility] 6Location History: [facility] 7Result Comment: [07/22/2014] [facility] Medications aspirin 81 mg oral tablet 81, mg, 1, tablet, By Mouth, Daily, 0, 0, 10/20/08 8:13:28, Print HARRY Number, [id number], Constant Indicator Start Date: 10/20/08 Status: Ordered Fish Oil = 1,000 mg, By Mouth, 0 Refills, Maintenance Start Date: 12/03/12 Status: Ordered multivitamin Therapeutic Multiple Vitamins oral tablet 1, tablet, By Mouth, Daily, 0, 0, 10/20/08 8:14:05, Print HARRY Number, [id number], Constant Indicator Start Date: 10/20/08 Status: Ordered [...]
--- OUTSIDE RECORDS SUMMARY | 2024-05-14 13:54 | XMS_ITS | Continuity of Care Document ---
Author Organization [facility] Address [address] [place] [address]- Care Team Providers Care Fresh Foods Technician Name Role Phone Matthias GAFFNEY, Lucian Alarcon Primary Care Physician [place] [facility] Date(s): 11/17/19 - 11/27/19 [facility] [address] [place] [address]- [facility] Attending Physician: Olaf Marsh Admitting Physician: AdmOlaf [...] toxoids (DT) 05/30/99 Given 1Result Comment: [12/13/2017] [facility] 2Admin Note: [facility] 3Location History: [facility] 4Location History: [facility] 5Result Comment: [07/22/2014] [facility] 6Admin Note: Sanofi Pasteur 7Admin Note: SANOFI PASTEUR Medications aspirin 81 mg oral tablet 81, mg, 1, tablet, By Mouth, Daily, 0, 0, 10/20/08 8:13:28, Print HARRY Number, [id number], Constant Indicator Start Date: 10/20/08 Status: Ordered [...] 0, 0, 10/20/08 8:14:05, Print HARRY Number, [id number], Constant Indicator Start Date: 10/20/08 Status: Ordered [...]
--- OUTSIDE RECORDS SUMMARY | 2024-05-14 13:54 | XMS_ITS | Continuity of Care Document ---
Author Organization [facility] Address [address] [place] [address]- Care Team Providers Care Music Therapist Name Role Phone Matthias GAFFNEY, Lucian Alarcon Primary Care Physician [facility] Date(s): 09/27/22 - 10/27/22 [facility] [address] [place], [place] [address] Attending Physician: Olaf Marsh Admitting Physician: Admtr, ArJamie Referring Physician: Admtr, Ar8 Allergies, Adverse Reactions, [...] toxoids (DT) 05/30/99 Given 1Result Comment: [12/13/2017] [facility] 2Admin Note: [facility] 3Admin Note: Sanofi Pasteur 4Admin Note: SANOFI PASTEUR 5Location History: [facility] 6Location History: [facility] 7Result Comment: [07/22/2014] [facility] Medications amLODIPine 5 mg oral tablet 5 mg, 1, tablet, By Mouth, Daily, # 90 tablet, Refills 3, Tot. Refills 3, Maintenance, 03/30/22 9:50:00 EDT, Route to Pharmacy Electronically, [facility] Partial fill upon patient request if... Start Date: 03/30/22 Status: Ordered aspirin 81 mg oral tablet 81, mg, 1, tablet, By Mouth, Daily, 0, 0, 10/20/08 8:13:28, Print HARRY Number, [id number], Constant Indicator Start Date: 10/20/08 Status: Ordered Fish Oil = 1,000 mg, By Mouth, 0 Refills, Maintenance Start Date: 12/03/12 Status: Ordered gabapentin 600 mg oral tablet 1 tablet = 600 mg, By Mouth, 3 times a day, # 270 tablet, 3 Refills, Maintenance, 08/04/22 12:02:00EDT, Tablet, [facility], Partial fill upon patient request if the prescription is for a schedule II opioid drug., 183, cm, 03/30... Start Date: 08/04/22 Status: Ordered guanFACINE 2 mg oral tablet [...] Daily, # 90 tablet, 1 Refills, Maintenance, 08/07/22 13:25:00 EDT, [facility], 183, cm, 03/30/22 9:04:00 EDT, Height Start Date: 08/07/22 Stop Date: 02/03/23 Status: Ordered LORazepam 1 mg oral tablet TAKE 1/2-1 TABLET ORALLY DAILY NEEDED FOR ANXIETY *DNF UNTIL 08/27 Start Date: 09/27/22 Status: Ordered multivitamin Therapeutic Multiple Vitamins oral tablet 1, tablet, By Mouth, Daily, 0, 0, 10/20/08 8:14:05, Print HARRY Number, [id number], Constant Indicator Start Date: 10/20/08 Status: Ordered pantoprazole 40 mg oral delayed release tablet 1 tablet, By Mouth, 2 times a day, # 180 tablet, 0 Refills, Maintenance, 06/26/22 13:52:00 EDT, 183, cm, 03/30/22 9:04:00 EDT, Height Start Date: 06/26/22 Status: Ordered traZODone 100 mg oral tablet [...] Personnel Name: Lucian Rizzo MD Position: S Primary Care Physician Member Role: PCP Address: Address: [address] [place] [address]- Care Team Related Persons Name: JOON GONZALEZ Address: [address] [address] Name: MOO GONZALEZ Address: home [address] [place] [address] Name: TASHIA LEÓN Address: [address] [place] [address] [place] [address]
--- OUTSIDE RECORDS SUMMARY | 2024-05-14 13:54 | XMS_ITS | Continuity of Care Document ---
Author Organization [facility] Address Unknown Care Team Providers Care Building Cleaning Supervisor Name Role Phone Matthias GAFFNEY, Lucian Alarcon Primary Care Physician Encounter [facility] Date(s): 11/22/21 - 12/22/21 [facility] Allergies, Adverse Reactions, Alerts No Known [...] 2Admin Note: SANOFI PASTEUR 3Result Comment: [12/13/2017] [facility] 5Location History: [facility] 6Location History: [facility] 7Result Comment: [07/22/2014] [facility] Medic[facility] aspirin 81 mg oral tablet 81, mg, 1, tablet, By Mouth, Daily, 0, 0, 10/20/08 8:13:28, Print HARRY Number, [id number], Constant Indicator Start Date: 10/20/08 Status: Ordered Biotin By Mouth, Daily, 0 Refills, Maintenance, 05/23/15 8:30:16 Start Date: 05/23/15 Status: Ordered Fish Oil = 1,000 mg, By Mouth, 0 Refills, Maintenance Start Date: 12/03/12 Status: Ordered multivitamin Therapeutic Multiple Vitamins oral tablet 1, tablet, By Mouth, Daily, 0, 0, 10/20/08 8:14:05, Print HARRY Number, [id number], Constant Indicator Start Date: 10/20/08 Status: Ordered [...]
--- OUTSIDE RECORDS SUMMARY | 2024-05-14 13:54 | XMS_ITS | Continuity of Care Document ---
Author Organization [facility] Address [address] [place] [address]- Care Team Providers Care Cultural Anthropology Professor Name Role Phone Lucian Rizzo MD Primary Care Physician Encounter [facility] [place] [facility] Date(s): 01/03/22 - 02/02/22 [facility] [address] [place] [address]- Attending Physician: Olaf Marsh Admitting Physician: Olaf Marsh Referring Physician: AdmtrOlaf Allergies, Adverse Reactions, Alerts No Known Allergies [...] toxoids (DT) 05/30/99 Given 1Result Comment: [12/13/2017] [facility] 2Admin Note: [facility] 3Admin Note: Sanofi Pasteur 4Admin Note: SANOFI PASTEUR 5Location History: [facility] 6Location History: [facility] 7Result Comment: [07/22/2014] [facility] aspirin 81 mg oral tablet 81, mg, 1, tablet, By Mouth, Daily, 0, 0, 10/20/08 8:13:28, Print HARRY Number, [id number], Constant Indicator Start Date: 10/20/08 Status: Ordered Fish Oil = 1,000 mg, By Mouth, 0 Refills, Maintenance Start Date: 12/03/12 Status: Ordered multivitamin Therapeutic Multiple Vitamins oral tablet 1, tablet, By Mouth, Daily, 0, 0, 10/20/08 8:14:05, Print HARRY Number, [id number], Constant Indicator Start Date: 10/20/08 Status: Ordered [...]
--- OUTSIDE RECORDS SUMMARY | 2024-05-14 13:54 | XMS_ITS | Continuity of Care Document ---
Author Organization [facility] Address [address] [place] [address] ve [address] [place] [address]- Care Team Providers Care Lab Rn Name Role Phone Matthias GAFFNEY, Lucian Alarcon Primary Care Physician [facility] Date(s): 09/29/19 - 10/06/19 [facility] [address] [place] [address]- [facility] Attending Physician: Aminah KOO, Elizabeth Orozco Allergies, Adverse Reactions, Alerts Substance Reaction Severity [...] toxoids (DT) 05/30/99 Given 1Result Comment: [12/13/2017] [facility] 2[facility]: [facility] 3Location History: [facility] 4Location History: [facility] 5Result Comment: [07/22/2014] [facility] 6Admin Note: Sanofi Pasteur 7Admin Note: SANOFI PASTEUR Medications aspirin 81 mg oral tablet 81, mg, 1, tablet, By Mouth, Daily, 0, 0, 10/20/08 8:13:28, Print HARRY Number, [id number], Constant Indicator Start Date: 10/20/08 Status: Ordered [...] 0, 0, 10/20/08 8:14:05, Print HARRY Number, [id number], Constant Indicator Start Date: 10/20/08 Status: Ordered [...] oldest [Reference Range]: 1 Height 183 cm (09/29/19 9:03 AM) Social History Social History Type Response Smoking Status Never smoker entered on: 10/19/14 Sex
--- OUTSIDE RECORDS SUMMARY | 2024-05-14 13:54 | XMS_ITS | Continuity of Care Document ---
Author Organization [facility] Address [address] [place] [address]- Care Team Providers Care Ground Support Agent Name Role Phone Lucian Rizzo MD Primary Care Physician Encounter [facility] [place] Date(s): 01/31/23 - 03/02/23 [facility] [address] [place], [place] [address] Attending Physician: Olaf Marsh Admitting Physician: Admtr, Olaf Referring Physician: Admtr, Ar8 Allergies, Adverse Reactions, [...] toxoids (DT) 05/30/99 Given 1Result Comment: [12/13/2017] [facility] 2[facility]: [facility] 3Admin Note: Sanofi Pasteur 4Admin Note: SANOFI PASTEUR 5Location History: [facility] 6Location History: [facility] 7Result Comment: [07/22/2014] [facility] amLODIPine 5 mg oral tablet 1 tablet, By Mouth, Daily, # 90 tablet, 1 Refills, Maintenance, 02/28/23 10:47:00 EDT, [facility], 183, cm, 01/31/23 15:19:00 EDT, Height Start Date: 02/28/23 Status: Ordered aspirin 81 mg oral tablet 81, mg, 1, tablet, By Mouth, Daily, 0, 0, 10/20/08 8:13:28, Print HARRY Number, [id number], Constant Indicator Start Date: 10/20/08 Status: Ordered gabapentin 800 mg oral tablet 1 tablet = 800 mg, By Mouth, 3 times a day, # 270 tablet, 1 Refills, Maintenance, 12/04/22 14:16:00EST, Tablet, [facility], Partial fill upon patient request if the prescription is for a schedule II opioid drug., 183, cm, 09/27... Start Date: 12/04/22 Status: Ordered guanFACINE 2 mg oral tablet [...] Daily, # 90 tablet, 1 Refills, Maintenance, 02/24/23 9:24:00 EDT, [facility], 183, cm, 01/31/23 15:19:00 EDT, Height Start Date: 02/24/23 Status: Ordered LORazepam 1 mg oral tablet TAKE 1/2-1 TABLET ORALLY DAILY NEEDED FOR ANXIETY *DNF UNTIL 08/27 Start Date: 09/27/22 Status: Ordered multivitamin Therapeutic Multiple Vitamins oral tablet 1, tablet, By Mouth, Daily, 0, 0, 10/20/08 8:14:05, Print HARRY Number, [id number], Constant Indicator Start Date: 10/20/08 Status: Ordered pantoprazole 40 mg oral delayed release tablet 1 tablet, By Mouth, 2 times a day, # 180 tablet, 1 Refills, Maintenance, 12/24/22 15:56:00 EDT, 183, cm, 09/27/22 14:15:00 EST, Height Start Date: 12/24/22 Status: Ordered traZODone 100 mg oral tablet [...] Primary Care Member Role: PCP Address: Address: [address] [place] [address]- Care Team Related Persons Name: JOON GONZALEZ Address: home [address] [place] [address] Name: MOO GONZALEZ Address: [address] [place] [address] Name: TASHIA LEÓN Address: [address] [place] [address]
--- OUTSIDE RECORDS SUMMARY | 2024-05-14 13:54 | XMS_ITS | Continuity of Care Document ---
Author Organization [facility] rom[facility] Address [address] [place], [place] [address]i ve [address] [place] [address]- Care Team Providers Care Vamp Cut Out Worker Name Role Phone Lucian Rizzo MD Primary Care Physician [facility]counter [facility] Date(s): 10/14/19 - 10/21/19 [facility] [address] [place] [address]- [facility] Attending Physician: Tal Duarte MD Referring Physician: [...] toxoids (DT) 05/30/99 Given 1Result Comment: [12/13/2017] [facility] 2Admin Note: [facility] 3Location History: [facility] 4Location History: [facility] 5Result Comment: [07/22/2014] [facility] 6Admin Note: Sanofi Pasteur 7Admin Note: SANOFI PASTEUR Medications aspirin 81 mg oral tablet 81, mg, 1, tablet, By Mouth, Daily, 0, 0, 10/20/08 8:13:28, Print HARRY Number, [id number], Constant Indicator Start Date: 10/20/08 Status: Ordered [...] 0, 0, 10/20/08 8:14:05, Print HARRY Number, [id number], Constant Indicator Start Date: 10/20/08 Status: Ordered [...] oldest [Reference Range]: 1 Height 183 cm (10/14/19 9:28 AM) Social History Social History Type Response Smoking Status Never smoker entered on: 10/19/14 Sex
--- OUTSIDE RECORDS SUMMARY | 2024-05-14 13:55 | XMS_ITS | Continuity of Care Document ---
Author Organization [facility] Address Unknown Care Team Providers Care Assistant Community Director Name Role Phone Lucian Rizzo MD Primary Care Physician Encounter [facility] Date(s): 09/19/21 - 10/19/21 [facility] Allergies, Adverse Reactions, Alerts No [...] 2Admin Note: SANOFI PASTEUR 3Result Comment: [12/13/2017] [facility] 4Admin Note: [facility] 5Location History: [facility] 6Location History: [facility] 7Result Comment: [07/22/2014] [facility] Medications aspirin 81 mg oral tablet 81, mg, 1, tablet, By Mouth, Daily, 0, 0, 10/20/08 8:13:28, Print HARRY Number, [id number], Constant Indicator Start Date: 10/20/08 Status: Ordered Biotin By Mouth, Daily, 0 Refills, Maintenance, 05/23/15 8:30:16 Start Date: 05/23/15 Status: Ordered Fish Oil = 1,000 mg, By Mouth, 0 Refills, Maintenance Start Date: 12/03/12 Status: Ordered multivitamin Therapeutic Multiple Vitamins oral tablet 1, tablet, By Mouth, Daily, 0, 0, 10/20/08 8:14:05, Print HARRY Number, [id number], Constant Indicator Start Date: 10/20/08 Status: Ordered [...]
--- OUTSIDE RECORDS SUMMARY | 2024-05-14 13:55 | XMS_ITS | Continuity of Care Document ---
Author Organization [facility] Address Unknown Care Team Providers Care Replanting Machine Operator Name Role Phone Lucian Rizzo MD Primary Care Physician Encounter [facility] Date(s): 10/03/21 - 11/02/21 [facility] Attending Physician: Olaf Marsh Admitting Physician: Olaf Marsh Referring Physician: Olaf Marsh Allergies, Adverse Reactions, Alerts No Known Allergies [...] 2Admin Note: SANOFI PASTEUR 3Result Comment: [12/13/2017] [facility] 4Admin Note: [facility] 5Location History: [facility] 6Location History: [facility] 7Result Comment: [07/22/2014] [facility] Medications aspirin 81 mg oral tablet 81, mg, 1, tablet, By Mouth, Daily, 0, 0, 10/20/08 8:13:28, Print HARRY Number, [id number], Constant Indicator Start Date: 10/20/08 Status: Ordered Biotin By Mouth, Daily, 0 Refills, Maintenance, 05/23/15 8:30:16 Start Date: 05/23/15 Status: Ordered Fish Oil = 1,000 mg, By Mouth, 0 Refills, Maintenance Start Date: 12/03/12 Status: Ordered multivitamin Therapeutic Multiple Vitamins oral tablet 1, tablet, By Mouth, Daily, 0, 0, 10/20/08 8:14:05, Print HARRY Number, [id number], Constant Indicator Start Date: 10/20/08 Status: Ordered [...]
--- OUTSIDE RECORDS SUMMARY | 2024-05-14 13:55 | XMS_ITS | Continuity of Care Document ---
Author Organization [facility] Address [address] [facility], 3[address] Floor, [address] [place] [address]- Care Team Providers Care Antique Repairer Name Role Phone Matthias GAFFNEY, Lucian Alarcon Primary Care Physician [facility]counter [facility] Date(s): 10/31/23 - 11/30/23 [facility] [address] [facility], 3rd Floor, [address] [place] [id number] Allergies, Adverse Reactions, Alerts No Known [...] toxoids (DT) 05/30/99 Given 1Result Comment: [12/13/2017] [facility] 2[facility] 3Admin Note: Sanofi Pasteur 4Admin Note: SANOFI PASTEUR 5Location History: [facility] 6Location History: [facility] 7Result Comment: [07/22/2014] [facility] Medications amLODIPine 5 mg oral tablet 1 tablet, By Mouth, Daily, # 90 tablet, 1 Refills, Maintenance, 02/28/23 10:47:00 EDT, [facility], 183, cm, 01/31/23 15:19:00 EDT, Height Start Date: 02/28/23 Status: Ordered aspirin 81 mg oral tablet 81, mg, 1, tablet, By Mouth, Daily, 0, 0, 10/20/08 8:13:28, Print HARRY Number, [id number], Constant Indicator Start Date: 10/20/08 Status: Ordered diclofenac sodium 75 mg oral delayed release tablet 1 tablet = 75 mg, By Mouth, 2 times a day, # 14 tablet, 0 Refills, Maintenance, 06/20/23 13:50:00 EDT, EC Tablet, [facility]/pharmacy #[id number], Partial fill upon patient request if [...] 06/12/23 9:34:00 EDT, Route to Pharmacy Electronically, [facility]/pharmacy #[id number], Partial fill upon patient request if the prescription... Start Date: 06/12/23 Stop Date: 06/19/23 Status: Ordered gabapentin 800 mg oral tablet 1 tablet, By Mouth, 3 times a day, # 270 tablet, 1 Refills, Maintenance, 05/13/23 13:47:00 EDT, [facility], 183, cm, 04/04/23 [...] tablet, 1 Refills, Maintenance, 11/25/23 0:55:00 EST, [facility], 183, cm, 11/11/23 15:35:00 EST, Height Start Date: 11/25/23 Status: Ordered LORazepam 1 mg oral tablet TAKE 1/2-1 TABLET ORALLY DAILY NEEDED FOR ANXIETY *DNF UNTIL 08/27 Start Date: 09/27/22 Status: Ordered multivitamin Therapeutic Multiple Vitamins oral tablet 1, tablet, By Mouth, Daily, 0, 0, 10/20/08 8:14:05, Print HARRY Number, [id number], Constant Indicator Start Date: 10/20/08 Status: Ordered [...] Primary Care Member Role: PCP Address: Address: [address] [place] [address]- Care Team Related Persons Name: JOON GONZALEZ Address: home [address] [place] [address] Name: MOO GONZALEZ Address: [address] [place] [address] Name: TASHIA LEÓN Address: [address] [place] [address]
--- OUTSIDE RECORDS SUMMARY | 2024-05-14 13:55 | XMS_ITS | Continuity of Care Document ---
Author Organization [facility] Address [address] [place] [address]- Care Team Providers Care Journeyman Sheet Metal Worker Name Role Phone Lucian Rizzo MD Primary Care Physician Encounter [facility] Date(s): 12/08/21 - 01/07/22 [facility] [address] [place] [id number] Attending Physician: Olaf Marsh Admitting Physician: AdmtrOlaf Referring Physician: Admtr, Ar8 Allergies, Adverse Reactions, [...] toxoids (DT) 05/30/99 Given 1Result Comment: [12/13/2017] [facility] [place] 2Admin Note: [facility] 3Admin Note: Sanofi Pasteur 4Admin Note: SANOFI PASTEUR 5Location History: [facility] 6Location History: [facility] 7Result Comment: [07/22/2014] [facility] Medications aspirin 81 mg oral tablet 81, mg, 1, tablet, By Mouth, Daily, 0, 0, 10/20/08 8:13:28, Print HARRY Number, [id number], Constant Indicator Start Date: 10/20/08 Status: Ordered Fish Oil = 1,000 mg, By Mouth, 0 Refills, Maintenance Start Date: 12/03/12 Status: Ordered multivitamin Therapeutic Multiple Vitamins oral tablet 1, tablet, By Mouth, Daily, 0, 0, 10/20/08 8:14:05, Print HARRY Number, [id number], Constant Indicator Start Date: 10/20/08 Status: Ordered [...]
--- OUTSIDE RECORDS SUMMARY | 2024-05-14 13:55 | XMS_ITS | Continuity of Care Document ---
Author Organization [facility] Address [address] [facility], 3r d Floor, [address] [place] [address]- Care Team Providers Care Seasoner Name Role Phone Matthias GAFFNEY, Lucian Alarcon Primary Care Physician [facility] Date(s): 10/31/23 - 11/30/23 [facility] [address] [facility], 3rd Floor, [address] [place] [id number] Allergies, Adverse Reactions, Alerts No Known Allergies Immunizations Given and Recorded Vaccine Date Status Refusal Reason SARS-CoV-2 (COVID-19) mRNA BNT-162b2 vac 09/11/21 Recorded SARS-CoV-2 (COVID-19) mRNA BNT-162b2 vac 01/10/21 Recorded SARS-CoV-2 (COVID-19) mRNA BNT-162b2 vac 12/20/20 Recorded influenza virus vaccine, inactivated 07/19/21 Uv rded influenza virus vaccine, inactivated 08/07/18 Vu [...] toxoids (DT) 05/30/99 Given 1Result Comment: [12/13/2017] [facility] 2[facility] 3Admin Note: Sanofi Pasteur 4Admin Note: SANOFI PASTEUR 5Location History: [facility] 6Location History: [facility] 7Result Comment: [07/22/2014] [facility] Medications amLODIPine 5 mg oral tablet 1 tablet, By Mouth, Daily, # 90 tablet, 1 Refills, Maintenance, 02/28/23 10:47:00 EDT, [facility], 183, cm, 01/31/23 15:19:00 EDT, Height Start Date: 02/28/23 Status: Ordered aspirin 81 mg oral tablet 81, mg, 1, tablet, By Mouth, Daily, 0, 0, 10/20/08 8:13:28, Print HARRY Number, [id number], Constant Indicator Start Date: 10/20/08 Status: Ordered diclofenac sodium 75 mg oral delayed release tablet 1 tablet = 75 mg, By Mouth, 2 times a day, # 14 tablet, 0 Refills, Maintenance, 06/20/23 13:50:00 EDT, EC Tablet, [facility]/pharmacy #[id number], Partial fill upon patient request if [...] 06/12/23 9:34:00 EDT, Route to Pharmacy Electronically, [facility]/pharmacy #[id number], Partial fill upon patient request if the prescription... Start Date: 06/12/23 Stop Date: 06/19/23 Status: Ordered gabapentin 800 mg oral tablet 1 tablet, By Mouth, 3 times a day, # 270 tablet, 1 Refills, Maintenance, 05/13/23 13:47:00 EDT, [facility], 183, cm, 04/04/23 [...] tablet, 1 Refills, Maintenance, 11/25/23 0:55:00 EST, [facility], 183, cm, 11/11/23 15:35:00 EST, Height Start Date: 11/25/23 Status: Ordered LORazepam 1 mg oral tablet TAKE 1/2-1 TABLET ORALLY DAILY NEEDED FOR ANXIETY *DNF UNTIL 08/27 Start Date: 09/27/22 Status: Ordered multivitamin Therapeutic Multiple Vitamins oral tablet 1, tablet, By Mouth, Daily, 0, 0, 10/20/08 8:14:05, Print HARRY Number, [id number], Constant Indicator Start Date: 10/20/08 Status: Ordered [...] Primary Care Member Role: PCP Address: Address: [address] [place] [address]- Care Team Related Persons Name: JOON GONZALEZ Address: home [address] [place] [address] Name: MOO GONZALEZ Address: [address] [place] [address] Name: TASHIA LEÓN Address: home [address] [place] [address]
--- OUTSIDE RECORDS SUMMARY | 2024-05-14 13:55 | XMS_ITS | Continuity of Care Document ---
Author Organization [facility] romy Address [address] [place], [place] [address] ve [address] [place] [address]- Care Team Providers Care Appeals Reviewer Veteran Name Role Phone Lucian Rizzo MD Primary Care Physician [facility] Date(s): 09/23/19 - 09/30/19 [facility] [address] [place] [address]- [facility] Attending Physician: Tal Duarte MD Referring [...] toxoids (DT) 05/30/99 Given 1Result Comment: [12/13/2017] [facility] 2[facility] 3Location History: [facility] 4Location History: [facility] 5Result Comment: [07/22/2014] [facility] 6Admin Note: Sanofi Pasteur 7Admin Note: SANOFI PASTEUR Medications aspirin 81 mg oral tablet 81, mg, 1, tablet, By Mouth, Daily, 0, 0, 10/20/08 8:13:28, Print HARRY Number, [id number], Constant Indicator Start Date: 10/20/08 Status: Ordered [...] 0, 0, 10/20/08 8:14:05, Print HARRY Number, [id number], Constant Indicator Start Date: 10/20/08 Status: Ordered [...] 0 Refills, Maintenance, 05/23/15 8:31:57 Start Date: 8/17/15 Status: Ordered Problem List Condition Effective Dates Status Health Status Inform ant Bipolar disorder(Confirmed) 2007 Active Gastroesophageal reflux dise ase with hiatal hernia(Confirmed) Active Headache disorder(Confirmed) Active HTN (hypertension)(Confirmed) 11/07/09 Active Skin lesion of face(Confirmed) Active Obstructive sleep apnea syndrome(Confirmed) 10/27/05 Active Overweight(Confirmed) Active Peyronie's Disease(Confirmed) 1998 Active Vital Signs Most recent to oldest [Reference Range]: 1 Height 183 cm (09/23/19 12:48 PM) Social History Social History Type Response Smoking Status Never smoker entered on: 10/19/14 Sex
--- OUTSIDE RECORDS SUMMARY | 2024-05-14 13:55 | XMS_ITS | Continuity of Care Document ---
Author Organization [facility] Address [address] [facility], 3r d Floor, [address] [place] [address]- Care Team Providers Care Inside Technical Sales Representative Name Role Phone Matthias GAFFNEY, Lucian Alarcon Primary Care Physician [facility] Date(s): 02/02/24 - 03/03/24 [facility] [address] [address] Allergies, Adverse Reactions, Alerts No Known Allergies [...] toxoids (DT) 05/30/99 Given 1Result Comment: [12/13/2017] [facility] 2Admin [facility] 3Admin Note: Sanofi Pasteur 4Admin Note: SANOFI PASTEUR 5Location History: [facility] 6Location History: [facility] 7Result Comment: [07/22/2014] [facility] Medications amLODIPine 5 mg oral tablet 1 tablet, By Mouth, Daily, # 90 tablet, 1 Refills, Maintenance, 12/13/23 11:47:00 EST, [facility], 183, cm, 11/11/23 15:35:00 EST, Height Start Date: 12/13/23 Status: Ordered aspirin 81 mg oral tablet 81, mg, 1, tablet, By Mouth, Daily, 0, 0, 10/20/08 8:13:28, Print HARRY Number, [id number], Constant Indicator Start Date: 10/20/08 Status: Ordered diclofenac sodium 75 mg oral delayed release tablet 1 tablet = 75 mg, By Mouth, 2 times a day, # 14 tablet, 0 Refills, Maintenance, 06/20/23 13:50:00 EDT, EC Tablet, [facility]/pharmacy #[id number], Partial fill upon patient request [...] 06/12/23 9:34:00 EDT, Route to Pharmacy Electronically, [facility]/pharmacy #[id number], Partial fill upon patient request if the prescription... Start Date: 06/12/23 Stop Date: 06/19/23 Status: Ordered gabapentin 800 mg oral tablet 1 tablet, By Mouth, 3 times a day, # 270 tablet, 3 Refills, Maintenance, 02/24/24 18:35:00 EDT, [facility], 183, cm, 11/11/23 15:35:00 EST, Height Start Date: 02/24/24 Status: Ordered guanFACINE 2 mg oral tablet [...] tablet, 1 Refills, Maintenance, 11/25/23 0:55:00 EST, [facility], 183, cm, 11/11/23 15:35:00 EST, Height Start Date: 11/25/23 Status: Ordered LORazepam 1 mg oral tablet TAKE 1/2-1 TABLET ORALLY DAILY NEEDED FOR ANXIETY *DNF UNTIL 08/27 Start Date: 09/27/22 Status: Ordered multivitamin Therapeutic Multiple Vitamins oral tablet 1, tablet, By Mouth, Daily, 0, 0, 10/20/08 8:14:05, Print HARRY Number, [id number], Constant Indicator Start Date: 10/20/08 Status: Ordered pantoprazole 40 mg oral delayed release tablet 1 tablet, By Mouth, 2 times a day, # 180 tablet, 1 Refills, Maintenance, 02/02/24 8:24:00 EDT, 183,cm, 11/11/23 15:35:00 EST, Height Start Date: 02/02/24 Status: Ordered traZODone 100 mg oral tablet [...] Primary Care Member Role: PCP Address: Address: [address] [place] [address]- Care Team Related Persons Name: JOON GONZALEZ Address: [address] [address] Name: MOO GONZALEZ Address: home [address] [place] [address] Name: TASHIA LEÓN Address: home [address] [place] [address]
--- OUTSIDE RECORDS SUMMARY | 2024-05-14 13:55 | XMS_ITS | Patient Health Record ---
Author Organization [facility] Address [address] [facility] [address] [place] [address] Support Name Relationship Address Phone Guevara Hoyos Guarantor Unknown [phone] ALLERGIES Allergen (clinical drug ingredient) Drug/Non Drug Allergy documented on EMR Reaction Allergy Type Onset Date Status seasonal (uncoded) Unknown Allergy A ctive REASON FOR REFERRAL No Information MEDICATIONS Medication SIG (Take, Route, Frequency, Duration) Notes Start Date End Date Status Aspirin Adult Low Dose 81 MG 1 tablet Orally Once a day Active Fish Oil Active Vitamin D Active Multivitamin Adult - as directed Orally Active Lisinopril 10 MG 1 tablet Orally Once a day Active SOCIAL HISTORY Tobacco Use: Social History Observation Description Date Details (start date - stop date) Never Smoker NA - NA Sex Assigned At : Social History Observation Description Sex Assigned At Unknown Tobacco Use/Smoking Question Answer Notes Are you a nonsmoker Alcohol Screen (Audit-C) Question Answer Notes Did you have a drink containing alcohol in the p ast year? 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
--- OUTSIDE RECORDS SUMMARY | 2024-05-14 13:55 | XMS_ITS | Continuity of Care Document ---
Author Organization [facility] Address [address] [facility], 3r d Floor, [address] [place] [address]- Care Team Providers Care Sustainability Officer Name Role Phone Matthias GAFFNEY, Lucian Alarcon Primary Care Physician Encounter [facility] Date(s): 02/08/21 - 03/10/21 [facility] [address], [address] [place] [id number] Attending Physician: Admchayito, Olaf Admitting Physician: Admtr, Julio8 Referring Physician: Admtr, Ar8 Allergies, Adverse Reactions, Alerts Substance Reaction Severity [...] 2Admin Note: SANOFI PASTEUR 3Result Comment: [12/13/2017] [facility] 4[facility]: [facility] 5Location History: [facility] 6Location History: [facility] 7Result Comment: [07/22/2014] [facility] Medic[facility] aspirin 81 mg oral tablet 81, mg, 1, tablet, By Mouth, Daily, 0, 0, 10/20/08 8:13:28, Print HARRY Number, [id number], Constant Indicator Start Date: 10/20/08 Status: Ordered Biotin By Mouth, Daily, 0 Refills, Maintenance, 05/23/15 8:30:16 Start Date: 05/23/15 Status: Ordered Fish Oil = 1,000 mg, By Mouth, 0 Refills, Maintenance Start Date: 12/03/12 Status: Ordered multivitamin Therapeutic Multiple Vitamins oral tablet 1, tablet, By Mouth, Daily, 0, 0, 10/20/08 8:14:05, Print HARRY Number, [id number], Constant Indicator Start Date: 10/20/08 Status: Ordered [...]
--- OUTSIDE RECORDS SUMMARY | 2024-05-14 13:55 | XMS_ITS | Continuity of Care Document ---
Author Organization [facility] Address [address] [facility], 3r d Floor, [address] [place] [address]- Care Team Providers Care Sports Psychologist Name Role Phone Matthias GAFFNEY, Lucian Alarcon Primary Care Physician [facility] 10[facility]31[facility]22 - 11/30/22 [facility] [address] [facility], 3rd Floor, [address] [place] [phone] Allergies, Adverse Reactions, Alerts No Known [...] toxoids (DT) 05/30/99 Given 1Result Comment: [12/13/2017] [facility] 2[facility] 3Admin Note: Sanofi Pasteur 4Admin Note: SANOFI PASTEUR 5Location History: [facility] 6Location History: [facility] 7Result Comment: [07/22/2014] [facility] Medications amLODIPine 5 mg oral tablet 5 mg, 1, tablet, By Mouth, Daily, # 90 tablet, Refills 3, Tot. Refills 3, Maintenance, 03/30/22 9:50:00 EDT, Route to Pharmacy Electronically, [facility] ([facility]), Partial fill upon patient request if... Start Date: 03/30/22 Status: Ordered aspirin 81 mg oral tablet 81, mg, 1, tablet, By Mouth, Daily, 0, 0, 10/20/08 8:13:28, Print HARRY Number, [id number], Constant Indicator Start Date: 10/20/08 Status: Ordered Fish Oil = 1,000 mg, By Mouth, 0 Refills, Maintenance Start Date: 12/03/12 Status: Ordered gabapentin 800 mg oral tablet 1 tablet = 800 mg, By Mouth, 3 times a day, # 270 tablet, 1 Refills, Maintenance, 11/28/22 17:02:00EST, [id number] Partial fill upon patient request if the prescription is for a schedule II opioid drug., 183, cm, 09/27/22 14:15:00 ES... Start Date: 11/28/22 Status: Ordered guanFACINE 2 mg oral tablet [...] tablet, 1 Refills, Maintenance, 08/07/22 13:25:00 EDT, [facility], 183, cm, 03/30/22 9:04:00 EDT, Height Start Date: 08/07/22 Stop Date: 02/03/23 Status: Ordered LORazepam 1 mg oral tablet TAKE 1/2-1 TABLET ORALLY DAILY NEEDED FOR ANXIETY *DNF UNTIL 08/27 Start Date: 09/27/22 Status: Ordered multivitamin Therapeutic Multiple Vitamins oral tablet 1, tablet, By Mouth, Daily, 0, 0, 10/20/08 8:14:05, Print HARRY Number, [id number], Constant Indicator Start Date: 10/20/08 Status: Ordered [...] Personnel Name: Matthias GAFFNEY, Lucian Alarcon Position: [facility] Primary Care Physician Member Role: PCP Address: Address: [address] [place] [address]- Care Team Related Persons Name: JOON GONZALEZ Address: [address] [address] Name: MOO GONZALEZ Address: home [address] [place] [address] Name: TASHIA LEÓN Address: [address] [place] [address]
--- NOTE | 2024-05-14 14:45 | A.OFFPSYCH_ITS ---
Intake Intake Visit Reasons: Depression Allergies No Known Allergies Allergy (Verified 12/24/22 22:37) Medication List - Last Reconciled 05/14/24 by Dylan Hastings MD amlodipine 5 mg PO gabapentin 600 mg PO TID guanfacine 2 mg PO BEDTIME lamotrigine 300 mg (2 x 150 mg) PO DAILY lisinopril mg PO lorazepam 0.5 - 1 mg (0.5 - 1 x 1 mg) PO DAILY PRN melatonin 3 mg PO BEDTIME trazodone 100 mg PO BEDTIME HPI- Psychiatric Chief Complaint: Depression HPI Narrative: Patient seen psychiatric follow-up. Patient does have a history of impulsivity with periods of poor judgment. He is missing some of the behaviors he used to do when he was younger has walked his way back from some of this. Does tend to be a worrier past history of alcohol and cocaine use none reported currently. Some increased anxiety and urges toward impulsivity during the day Past Psychiatric History: The patient has a history of ADHD history of impulsivity past impulsive behaviors history of cocaine and alcohol use has been stable on a combination of guanfacine Lamictal Mental Status Exam Mental Status Exam Narrative: Mental Status Exam Narrative: Appearance: Casually dressed Behavior: Cooperative psychomotor: inc energy Speech: mildly pressured Thought proccess goal-directed ruminating Thought content: Future oriented perseveration regarding his past and managing his present anxiety and impulsivity with different techniques Fear of loss of contact with his daughter Mood: Anxious Affect: Appropriate to mood full affect SI:denies HI:denies VH/AH:none Delusions: None Insight/judgment: Insight and judgment at times impaired regarding potential risky behavior Memory/cog: Intact Assessment and Plan Assessment & Plan (1) Generalized anxiety disorder: Status: Acute Code(s): F41.1 - Generalized anxiety disorder (2) Bipolar disorder, unspecified: Status: Acute Code(s): F31.9 - Bipolar disorder, unspecified (3) ADHD: Status: Acute Code(s): F90.9 - Attention-deficit hyperactivity disorder, unspecified type Plan Guanfacine 1/2 tab bid up to 1 1/2 daily urged pt work relaxation strategies monitor blood pressure warned regarding need to maintain hydration risks of dizziness orthostatic hypotension continue Lami ctal low-dose lorazepam p.r.n. encouraged daily walking suggestion of volunteer work or part-time job patient does best when maintains activity. Follow-up 2-3 months Counseling and coordination of Care Pt. Self Management counseling: Breathing, Exercise and Behavior activation Details-Self Mgmt counseling: Issues related to judgment and impulsivity trying to not make choices that could put him at risk of D stabilizing his life situation Medication management counseling: Effectiveness, Side effects and Dosing range Diagnosis and Prognosis Counseling: Problematic behaviors secondary to diagnosis and Adequacy of current interventions Details: I spent [38] minutes reviewing the record, seeing the patient and documenting in the medical record. Counseling provided to the patient/caregiver as outlined below. Addressed patient/caregiver concerns regarding current medication regime including effective adherence. Addressed patient/caregiver concerns regarding diagnosis and prognosis including accuracy of diagnosis, prognosis over time, impact of di agnosis. Addressed patient/caregiver concerns regarding impact of recent stressors. 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 HAD [place] AND QUESTION OF CVA IN THE PAST STATUS POST COCAINE INTOXICATION HAS BEEN SOBER Trauma History: NA Coding Level of Care Code Est Pt Level 3 (57717) Therapy 30m w/E&M (46862) Diagnoses Generalized anxiety disorder F41.1 Bipolar disorder, unspecified F31.9 ADHD F90.9
== END 2024-05-14 14:47 | disposition home or self-care (01) ==
LOC: HO.HOP 13:53
PROVIDERS: PCP Internal Medicine; Visit Provider Psychiatry & Neurology Psychiatry
DX: F41.1 Generalized anxiety disorder (principal); F31.9 Bipolar disorder, unspecified; F90.9 Attention-deficit hyperactivity disorder, unspecified type
CPT/HCPCS: 90833; 99213

== ENCOUNTER → 2024-05-14 13:53 | Outpatient (BNVA) | payer MEDICARE, OTHER, SELFPAY | PROVIDERS: PCP Internal Medicine; Visit Provider Psychiatry & Neurology Psychiatry | DX: F41.1 Generalized anxiety disorder (principal); F31.9 Bipolar disorder, unspecified; F90.9 Attention-deficit hyperactivity disorder, unspecified type | CPT/HCPCS: 99212 ==

== ENCOUNTER 2024-08-13 13:17 | Outpatient (AMB) | payer MEDICARE, OTHER, SELFPAY ==
--- NOTE | 2024-08-13 13:50 | A.OFFPSYCH_ITS ---
Intake Vital Signs 08/13/24 14:03 BP 150/85 H Pulse 58 Intake Visit Reasons: Depression Allergies No Known Allergies Allergy (Verified 12/24/22 22:37) Medication List - Last Reconciled 08/13/24 by Dylan Hastings MD amlodipine 5 mg PO gabapentin mg PO TID guanfacine 2 mg PO BEDTIME lamotrigine 300 mg (2 x 150 mg) PO DAILY lisinopril mg PO lorazepam 0.5 - 1 mg (0.5 - 1 x 1 mg) PO DAILY PRN melatonin 3 mg PO BEDTIME trazodone 100 mg PO BEDTIME HPI- Psychiatric Chief Complaint: Depression HPI Narrative: Pt seen in f/u tends to be hyper takes 800 tid gabapentin guanfacine 2 mg hs lamictal chronically reactive anxiety generally doing ok does exercise regularly feels better when active exercises also in winter has difficulty leading a more teen existence then he led previously does get fantasizing and occasionally has impulsive type thoughts and impulses. no significant depression or nery does tend to be a chronic worrier Past Psychiatric History: The patient has a history of ADHD history of impulsivity past impulsive behaviors history of cocaine and alcohol use has been stable on a combination of guanfacine Lamictal Mental Status Exam Mental Status Exam Narrative: Mental Status Exam Narrative: Appearance: Casually dressed Behavior: Cooperative psychomotor: inc energy Speech: mildly pressured Thought proccess goal-directed ruminating Thought content: Future oriented focused on hyperactivity enrgy tends to worry Mood: Anxious Affect: Appropriate to mood full affect SI:denies HI:denies VH/AH:none Delusions: None Insight/judgment: Insight and judgment at times impaired Memory/cog: Intact Assessment and Plan Assessment & Plan (1) ADHD: Status: Acute Code(s): F90.9 - Attention-deficit hyperactivity disorder, unspecified type (2) Bipolar disorder, unspecified: Status: Acute Code(s): F31.9 - Bipolar disorder, unspecified (3) Generalized anxiety disorder: Status: Acute Code(s): F41.1 - Generalized anxiety disorder (4) OCD (obsessive compulsive disorder): Status: Acute Code(s): F42.9 - Obsessive-compulsive disorder, unspecified Plan pt doing ok has mild htn generally has done better with structure continues to have an exercise routine that helps keep him stable. He is quite close with his daughter tries to keep his behavior generally in check no self-harm future oriented discussed use of guanfacine that he might take during the day when feeling more anxious and impulsive restless. he is on chronic high-dose gabap entin for neuropathy that does not appear to be sedating Counseling and coordination of Care Pt. Self Management counseling: Exercise and Behavior activation Details-Self Mgmt counseling: would benefit from relaxation training has a hard time considering this Medication management counseling: Effectiveness Details-Med Mgmt counseling: Patient has lot of periods of restlessness anxiety pressure consistent with his ADD. It trying half a guanfacine in the morning and half in the evening monitor for dizziness Diagnosis and Prognosis Counseling: Problematic behaviors secondary to diagnosis and Adequacy of current interventions Details: I spent [39] minutes reviewing the record, seeing the patient and documenting in the medical record. Counseling provided to the patient/caregiver as outlined below. Addressed patient/caregiver concerns regarding current medication regime including effective adherence. Addressed patient/caregiver concerns regarding diagnosis and prognosis including accuracy of diagnosis, prognosis over time, impact of diagnosis. Addressed patient/caregiver concerns regarding impact of recent stressors. 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 HAD [place] AND QUESTION OF CVA IN THE PAST STATUS POST COCAINE INTOXICATION HAS BEEN SOBER Trauma History: NA Coding Level of Care Code Est Pt Level 3 (24602) Therapy 30m w/E&M (04572) Diagnoses ADHD F90.9 Bipolar disorder, unspecified F31.9 Generalized anxiety disorder F41.1 OCD (obsessive compulsive disorder) F42.9
[2024-08-13 14:03] VITALS: BP 150/85; PULSE 58
== END 2024-08-13 14:05 | disposition home or self-care (01) ==
LOC: HO.HOP 13:18
PROVIDERS: PCP Internal Medicine; Visit Provider Psychiatry & Neurology Psychiatry
DX: F90.9 Attention-deficit hyperactivity disorder, unspecified type (principal); F31.9 Bipolar disorder, unspecified; F41.1 Generalized anxiety disorder; F42.9 Obsessive-compulsive disorder, unspecified
CPT/HCPCS: 90833; 99213

== ENCOUNTER → 2024-08-13 13:17 | Outpatient (BNVA) | payer MEDICARE, OTHER, SELFPAY | PROVIDERS: PCP Internal Medicine; Visit Provider Psychiatry & Neurology Psychiatry | DX: F90.9 Attention-deficit hyperactivity disorder, unspecified type (principal); F31.9 Bipolar disorder, unspecified; F41.1 Generalized anxiety disorder; F42.9 Obsessive-compulsive disorder, unspecified | CPT/HCPCS: 99212 ==

== ENCOUNTER 2024-11-19 13:52 | Outpatient (AMB) | payer MEDICARE, OTHER, SELFPAY ==
--- NOTE | 2024-11-19 13:39 | A.OFFPSYCH_ITS ---
Intake Intake Visit Reasons: Depression Allergies No Known Allergies Allergy (Verified 12/24/22 22:37) Medication List - Last Reconciled 11/19/24 by Dylan Hastings MD amlodipine 5 mg PO gabapentin mg PO TID guanfacine 2 mg PO BEDTIME lamotrigine 300 mg (2 x 150 mg) PO DAILY lisinopril mg PO lorazepam 0.5 - 1 mg (0.5 - 1 x 1 mg) PO DAILY PRN melatonin 3 mg PO BEDTIME trazodone 100 mg PO BEDTIME HPI- Psychiatric Chief Complaint: Depression HPI Narrative: Patient seen in psychiatric follow-up. Patient's mood generally stable does have impulsive thoughts and ruminations regarding having sex in impulsively in a manner that he used to he states he remains sober. He appears to be mourning the loss of his past sexual life. Does not appear gritty euphoric has history of atypical mood swings and ADD. I have encouraged him to use guanfacine which he does take at bedtime but to also use a half tab during the day which has been quite helpful for anxiety and impulsivity. Have recommended in the past regular counseling. Patient does not have an ongoing sexual relationship with his partner. Past Psychiatric History: The patient has a history of ADHD history of impulsivity past impulsive behaviors history of cocaine and alcohol use has been stable on a combination of guanfacine Lamictal Mental Status Exam Mental Status Exam Narrative: Mental Status Exam Narrative: Appearance: Casually dressed Behavior: Cooperative psychomotor: inc energy Speech: pressured Thought proccess goal-directed ruminating Thought content: Future oriented focused on hyperactivity enrgy and past euphoria when he was tends to worry Mood: Anxious expansive Affect: Appropriate to mood full affect SI:denies HI:denies VH/AH:none Delusions: None Insight/judgment: Insight and judgment at times impaired has craving for sexual life and excitment he once had Memory/cog: Intact Assessment and Plan Assessment & Plan (1) Bipolar disorder, unspecified: Status: Acute Code(s): F31.9 - Bipolar disorder, unspecified (2) ADHD: Status: Acute Code(s): F90.9 - Attention-deficit hyperactivity disorder, unspecified type (3) Generalized anxiety disorder: Status: Acute Code(s): F41.1 - Generalized anxiety disorder Plan Patient is somewhat more expansive feeling a little bit more impulsive issues related to ?? Past patient states he remains sober has not been sexually impulsive. Did discuss option to increase Lamictal 400 mg daily urged patient to take half tab of guanfacine in the morning addition to the bedtime dose he also remains on gabapentin prescribed for neuropathy by another provider. Does not appear overmedicated no evidence of abuse or tolerance Counseling and coordination of Care Pt. Self Management counseling: Breathing and Behavior activation Details-Self Mgmt counseling: Patient does have strategies to manage anxiety and impulsivity including exercise Patient states he has not been acting in a way that puts him or anyone else in jeopardy he does understand that he does well with structure Medication management counseling: Effectiveness, Side effects and Dosing range Diagnosis and Prognosis Counseling: Impact of diagnosis on life functions, Problematic behaviors secondary to diagnosis and Adequacy of current interventions Details: I spent [39] minutes reviewing the record, seeing the patient and documenting in the medical record. Counseling provided to the patient/caregiver as outlined below. Addressed patient/caregiver concerns regarding current medication regime including effective adherence. Addressed patient/caregiver concerns regarding diagnosis and prognosis including accuracy of diagnosis, prognosis over time, impact of diagnosis. Addressed patient/caregiver concerns regarding impact of recent stressors. 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 HAD [place] AND QUESTION OF CVA IN THE PAST STATUS POST COCAINE INTOXICATION HAS BEEN SOBER Trauma History: NA Coding Level of Care Code Est Pt Level 3 (91327) Therapy 30m w/E&M (97866) Diagnoses Bipolar disorder, unspecified F31.9 ADHD F90.9 Generalized anxiety disorder F41.1
--- OUTSIDE RECORDS SUMMARY | 2024-11-19 13:55 | XMS_ITS | Patient Health Record ---
Author Organization [facility] Address [address] [place] [address] Support Name Relationship Address Phone Guevara Hoyos Guarantor Unknown [phone] Allergies Allergen (clinical drug ingredient) Drug/Non Drug Allergy documented on EMR Reaction Allergy Type Onset Date Status seasonal (uncoded) Unknown Allergy A ctive Reason For Referral No Information Medications Medication SIG (Take, Route, Frequency, Duration) Notes Start Date End Date Status Aspirin Adult Low Dose 81 MG 1 tablet Orally Once a day Active Fish Oil Active Vitamin D Active Multivitamin Adult - as directed Orally Active Lisinopril 10 MG 1 tablet Orally Once a day Active Social History Tobacco Use: Social History Observation Description Date Details (start date - stop date) Never Smoker NA - NA Tobacco Use/Smoking Question Answer Notes Are you a nonsmoker Alcohol Screen (Audit-C) Question Answer Notes Did you have a drink containing alcohol in the p ast year? No Points 0 Interpretation Negative Problems Problem Type SNOMED Code ICD Code Onset Dates Problem Status W/U Status Risk Notes Problem Hematuria (84953121) Hematuria, unspecified (R31.9) Active confirmed Problem Business Continuity Analyst license medical examination ([id number]) Encounter for examination for driving license (Z02.4) Active confirmed Plan Of Treatment No Information Insurance Providers Payer Name Payer Address Payer Phone Subscriber Number Group Number Insured Name Patient Relationship to Insured Coverage Start Date Coverage End Date [address] [id number] Guevara Hoyos Self - patient is the insured Medical (General) History Medical History History ICD Code hypertension Surgical History Surgery Date(Month/Year) cholecystectomy knee surgery x2 implant on right toe
--- OUTSIDE RECORDS SUMMARY | 2024-11-19 13:55 | XMS_ITS | Continuity of Care Document ---
Author Organization [facility] Address [address], [address], [address] [place] [id number] Care Team Providers Care Hand Sole Sewer Name Role Phone Matthias GAFFNEY, Lucian Alarcon Primary Care Physician Encounter [facility] [place] Date(s): 10/09/24 - 11/08/24 [facility] [address], [address] [place] [id number] Encounter Type: Triage Allergies, Adverse Reactions, Alerts No Known Allergies Immunizations Given and Recorded Vaccine Date Status Refusal Reason influenza virus vaccine, inactivated 09/03/23 Vu rded influenza virus vaccine, inactivated 06/19/22 Vu rded influenza virus vaccine, inactivated 07/19/21 Vu rded influenza virus vaccine, inactivated 08/07/18 Vu rded influenza virus vaccine, inactivated 07/07/18 Vu rded influenza virus vaccine, inactivated 07/11/17 Vu rded influenza virus vaccine, inactivated 1 07/07/17 Re corded influenza virus vaccine, inactivated 07/17/16 Vu rded influenza virus vaccine, inactivated 2 08/07/13 Gi qamar influenza virus vaccine, inactivated 06/22/09 Give n SARS-CoV-2(COVID-19)mRNA-LNP vac([id number]) 09/03/23 Recorded [id number] bivalent booster vax 08/14/22 Recorded SARS-CoV-2 (COVID-19) mRNA BNT-162b2 vac 09/11/21 Recorded [...] toxoids (DT) 05/30/99 Given 1Result Comment: [12/13/2017] [facility] 2Admin Note: [facility] 3Admin Note: [employer] 4Admin Note: SANOFI PASTEUR [facility] 6[facility] 7Result Comment: [07/22/2014] [facility] Medications Alpha Lipoic 300 mg oral tablet 1 tablet = 300 mg, By Mouth, 2 times a day, # 30 tablet, 0 Refills, Maintenance, 10/19/24 2:24:00 PMEST, Tablet, [facility]pharm[facility] #[id number], Partial fill upon patient request if the prescription is for a schedule II opioid drug., 183, cm, 10/19/24 14:07:00 EST, Height, 85.45, kg, 10/19/24 14:07:00 EST, DryWeight Start Date: 10/19/24 Status: Ordered Quantity: 30.0 Unit: tablet Repeat number: 1 amLODIPine 10 mg oral tablet 1 tablet = 10 mg, By Mouth, Daily, # 90 tablet, 3 Refills, Maintenance, 04/16/24 8:40:00 AM EDT, Tablet, [facility], Partial fill upon patient request if the prescription is fora schedule II opioid drug., 183, cm, 04/16/24 8:07:00 EDT, Height Start Date: 04/16/24 Status: Ordered Quantity: 90.0 Unit: tablet Repeat number: 4 aspirin 81 mg oral tablet 81 mg, 1, tablet, By Mouth, Daily, 0 Refills Start Date: 10/20/08 Status: Ordered Repeat number: 1 gabapentin 800 mg oral tablet 1 tablet, By Mouth, 3 times a day, # 270 tablet, 3 Refills, Maintenance, 02/24/24 6:35:00 PM EDT, [facility], 183, cm, 11/11/23 15:35:00 EST, Height Start Date: 02/24/24 Status: Ordered Quantity: 270.0 Unit: tablet Repeat number: 1 guanFACINE 2 mg oral tablet 1 tablet = 2 mg, By Mouth, Daily at bedtime, # 30 tablet, 0 Refills, Maintenance, 09/27/22 2:41:00 PM EST, Tablet, Partial fill upon patient request if the prescription is for a schedule II opioid drug. Start Date: 09/27/22 Status: Ordered Quantity: 30.0 Unit: tablet Repeat number: 1 lamotrigine 150 mg oral tablet 1 tablet = 150 mg, By Mouth, 2 times a day, # 60 tablet, 0 Refills, Maintenance, 09/27/22 2:42:00 PM EST, Tablet, Partial fill upon patient request if the prescription is for a schedule II opioid drug. Start Date: 09/27/22 Status: Ordered Quantity: 60.0 Unit: tablet Repeat number: 1 lisinopril 30 mg oral tablet See Instructions, TAKE 1 TABLET EVERY DAY, # 90 tablet, 1 Refills, Maintenance, 11/08/24 2:03:00 PM EST, [facility], 183, cm, 10/19/24 14:07:00 EST, Height, 85.45, kg, 10/19/24 14:07:00 EST, Dry Weight Start Date: 11/08/24 Status: Ordered Quantity: 90.0 Unit: tablet Repeat number: 1 LORazepam 1 mg oral tablet TAKE 1/2-1 TABLET ORALLY DAILY NEEDED FOR ANXIETY *DNF UNTIL 08/27 Start Date: 09/27/22 Status: Ordered Repeat number: 1 multivitamin Therapeutic Multiple Vitamins oral tablet 1, tablet, By Mouth, Daily, 0 Refills Start Date: 10/20/08 Status: Ordered Repeat number: 1 pantoprazole 40 mg oral delayed release tablet See Instructions, TAKE 1 TABLET TWICE DAILY, # 180 tablet, 1 Refills, Maintenance, 08/18/24 11:23:00 AM EST, 183, cm, 04/16/24 8:07:00 EDT, Height Start Date: 08/18/24 Status: Ordered Quantity: 180.0 Unit: tablet Repeat number: 1 traZODone 100 mg oral tablet Daily at bedtime, Refills 0, Maintenance, 09/27/22 2:42:00 PM EST, Partial fill upon patient request if the prescription is for a schedule II opioid drug. Start Date: 09/27/22 Status: Ordered Repeat number: 1 Vitamin B12 250 mcg oral tablet 1 tablet = 250 mcg, By Mouth, Daily, # 30 tablet, 0 Refills, Maintenance, 10/19/24 2:14:00 PM EST, Tablet, [id number], Partial fill upon patient request if the prescription is for a schedule II opioid drug., 183, cm, 10/19/24 14:07:00 EST, Height, 85.45, kg, 10/19/24 14:07:00 EST, Dry Weight Start Date: 10/19/24 Status: Ordered Quantity: 30.0 Unit: tablet Repeat number: 1 Vitamin C = 500 mg, 0 Refills, Maintenance, 12/03/12 4:55:50 PM EST Start Date: 12/03/12 Status: Ordered Repeat number: 1 Vitamin D3 2000 intl units oral capsule 1 capsule = 2,000 International_Units, By Mouth, Daily, 0 Refills, Maintenance, 05/23/15 8:31:57 AM EDT Start Date: 05/23/15 Status: Ordered Repeat number: 1 Problem List Condition Confirmation Course Effective Dates Status H ealth Status Informant Primary hypertension Confirmed 11/07/09 Active Gastroesophageal reflux disease with hiatal hernia Confirmed Active Headache disorder Confirmed Active Skin lesion of face Confirmed Active Obstructive sleep apnea syndrome Confirmed 10/27/05 Active Neuropathic pain of lower extremity, bilateral. EMG abnormal 12/2021. On gabapentin Confirmed Active Peyronie's Disease Confirmed 1998 Active Social History Social History Type Response Smoking Status Never smoker entered on: 10/19/14 Sex Sex Representation Male (finding) Patient Care team information Care Team Personnel Name: Lucian Rizzo MD Position: S Physician - Primary Care Member Role: PCP Address: [address] [place] [phone] Telecom: Care Team Related Persons Name: JOON GONZALEZ Name: MOO GONZALEZ Name: TASHIA LEÓN Insurance Providers Guarantor name: CARLOS ALBERTO GONZALEZ Health Plan Information #: 1 Payer: MEDICARE PART B OUTPT Member Number: NA Policy Number: NA Group Number: NA Health Plan Information #: 2 Payer: [facility] SELECT HMO Member Number: NA Policy Number: NA Group Number: NA
--- OUTSIDE RECORDS SUMMARY | 2024-11-19 13:55 | XMS_ITS | Continuity of Care Document ---
Author Organization [facility] Address [address] [facility], 3r d Floor, [address] [place] [id number]- Care Team Providers Care Feeder Loader Name Role Phone Matthias GAFFNEY, Lucian Alarcon Primary Care Physician Encounter [facility] Date(s): 10/19/24 - 11/18/24 [facility] [address], [address] [place] [id number] Attending Physician: Olaf Marsh Admitting Physician: AdmOlaf stratton Referring Physician: Admtr ArJamie Encounter Type: Triage Allergies, Adverse Reactions, Alerts [...] virus vaccine, inactivated 06/22/09 Give n SARS-CoV-2(COVID-19)mRNA-LNP vac([id number]) 09/03/23 Recorded [id number] bivalent booster vax 08/14/22 Recorded SARS-CoV-2 (COVID-19) mRNA BNT-162b2 vac 09/11/21 Recorded SARS-CoV-2 (COVID-19) mRNA BNT-162b2 vac 4/6/21 Recorded SARS-CoV-2 (COVID-19) mRNA BNT-162b2 vac 12/20/20 [...] toxoids (DT) 05/30/99 Given 1Result Comment: [12/13/2017] [facility] 2Admin Note[facility] 3Admin Note: Sanofi Pasteur 4Admin Note: SANOFI PASTEUR [facility] 6[facility] 7Result Comment: [07/22/2014] [facility] Alpha Lipoic 300 mg oral tablet 1 tablet = 300 mg, By Mouth, 2 times a day, # 30 tablet, 0 Refills, Maintenance, 10/19/24 2:24:00 PMEST, Tablet, [id number], Partial fill upon patient [...] Refills, Maintenance, 04/16/24 8:40:00 AM EDT, Tablet, [facility], Partial fill upon patient [...] 3 Refills, Maintenance, 02/24/24 6:35:00 PM EDT, [facility], 183, cm, [...] 1 Refills, Maintenance, 11/08/24 2:03:00 PM EST, [facility], 183, cm, 10/19/24 14:07:00 [...] Refills, Maintenance, 10/19/24 2:14:00 PM EST, Tablet, [facility]/pharmacy #[id number], Partial fill upon patient [...] - Primary Care Member Role: PCP Address: [address] [place] [id number] Telecom: Care Team Related Persons Name: JOON GONZALEZ Name: MOO GONZALEZ Name: TASHIA LEÓN Insurance Providers Guarantor name: CARLOS ALBERTO GONZALEZ Health Plan Information #: 1 Payer: MEDICARE PART B OUTPT Member Number: NA Policy Number: NA Group Number: NA Health Plan Information #: 2 Payer: [facility] HMO Member Number: NA Policy Number: NA Group Number: NA
--- OUTSIDE RECORDS SUMMARY | 2024-11-19 13:55 | XMS_ITS | Continuity of Care Document ---
Author Organization [facility] Address [address] [facility], 3r d Floor, [address] [place] [id number]- Care Team Providers Care Associate Director Of Development Name Role Phone Matthias GAFFNEY, Lucian Alarcon Primary Care Physician Encounter [facility] Date(s): 10/14/24 - 11/14/24 [facility] [address] Floor, [address] [place] [id number] Attending Physician: Roxy Jones MD Admitting Physician: Roxy Jones MD Encounter Type: Pre-OutPatient One Time Allergies, Adverse Reactions, Alerts No Known Allergies [...] virus vaccine, inactivated 06/22/09 Give n SARS-CoV-2(COVID-19)mRNA-LNP vac([id number]) 09/03/23 Recorded [id number] bivalent booster vax 08/14/22 Recorded SARS-CoV-2 (COVID-19) [...] toxoids (DT) 05/30/99 Given 1Result Comment: [12/13/2017] [facility] 2Admin Note: [facility] 3Admin Note: Sanofi Pasteur [...] Refills, Maintenance, 04/16/24 8:40:00 AM EDT, Tablet, [facility], Partial fill upon patient [...] 3 Refills, Maintenance, 02/24/24 6:35:00 PM EDT, [facility], 183, cm, 11/11/23 15:35:00 [...] 1 Refills, Maintenance, 11/08/24 2:03:00 PM EST, [facility], 183, cm, 10/19/24 14:07:00 [...] Team Personnel Name: Lucian Rizzo MD Position: [facility] Physician - Primary Care Member Role: PCP Address: [address] [place] [id number] Telecom: Care Team Related Persons Name: JOON GONZALEZ Name: MOO GONZALEZ Name: TASHIA LEÓN Insurance Providers Guarantor name: CARLOS ALBERTO GONZALEZ Health Plan Information #: 2 Payer: [facility] HMO Member Number: [id number] Policy Number: NA Group Number: [id number] Health Plan Information #: 1 Payer: MEDICARE PART B OUTPT Member Number: [id number] Policy Number: NA Group Number: [id number]
== END 2024-11-19 13:56 | disposition home or self-care (01) ==
LOC: HO.HOP 13:53
PROVIDERS: PCP Internal Medicine; Visit Provider Psychiatry & Neurology Psychiatry
DX: F31.9 Bipolar disorder, unspecified (principal); F90.9 Attention-deficit hyperactivity disorder, unspecified type; F41.1 Generalized anxiety disorder
CPT/HCPCS: 90833; 99213

== ENCOUNTER → 2024-11-19 13:52 | Outpatient (BNVA) | payer MEDICARE, OTHER, SELFPAY | PROVIDERS: PCP Internal Medicine; Visit Provider Psychiatry & Neurology Psychiatry | DX: F31.9 Bipolar disorder, unspecified (principal); F90.9 Attention-deficit hyperactivity disorder, unspecified type; F41.1 Generalized anxiety disorder | CPT/HCPCS: 99212 ==

== ENCOUNTER 2024-12-31 13:18 | Outpatient (AMB) | payer MEDICARE, OTHER, SELFPAY ==
--- NOTE | 2024-12-31 14:05 | A.OFFPSYCH_ITS ---
Intake Vital Signs 12/31/24 19:18 BP 146/92 H Pulse 60 Intake Visit Reasons: Depression Allergies No Known Allergies Allergy (Verified 12/24/22 22:37) Medication List - Last Reconciled 12/31/24 by Dylan Hastings MD amlodipine 10 mg PO DAILY gabapentin mg PO TID guanfacine 2 mg PO BEDTIME lamotrigine 300 mg (2 x 150 mg) PO DAILY lisinopril mg PO lorazepam 0.5 - 1 mg (0.5 - 1 x 1 mg) PO DAILY PRN melatonin 3 mg PO BEDTIME trazodone 100 mg PO BEDTIME HPI- Psychiatric Chief Complaint: Depression HPI Narrative: Pt seen in f/u mood has been expansive anxious pressured at times difficulty relaxing when takes half tab guanfacine can be helpful. pt on lamictal guanfacine occ lorazepam prn pt with hx of ADD stable when pt is physically active enjoys playing with grandchildren hiking jogging very connected with his daughter Past Psychiatric History: The patient has a history of ADHD history of impulsivity past impulsive behaviors history of cocaine and alcohol use has been stable on a combination of guanfacine Lamictal Mental Status Exam Mental Status Exam Narrative: Mental Status Exam Narrative: Appearance: Casually dressed Behavior: Cooperative psychomotor: inc energy Speech: nl Thought proccess goal-directed somewhat obsessional Thought content: Future oriented focused on ways to manage his anxiety need to stay busy Mood: Anxious Affect: Appropriate to mood full affect SI:denies HI:denies VH/AH:none Delusions: None Insight/judgment: Insight and judgment seem improved Memory/cog: Intact Assessment and Plan Assessment & Plan (1) ADHD: Status: Acute Code(s): F90.9 - Attention-deficit hyperactivity disorder, unspecified type (2) Generalized anxiety disorder: Status: Acute Code(s): F41.1 - Generalized anxiety disorder (3) OCD (obsessive compulsive disorder): Status: Acute Code(s): F42.9 - Obsessive-compulsive disorder, unspecified Plan change guanfacine to 1 tid asked pt to take intermittant bp and pulse total dose the same 1 tid may help with daytime anxiety agitation cont lamictal encourage regular structure Medications: Changed From guanfacine 1 bedtime 1/2 tab daily prn 2 mg PO BEDTIME 135 tabs 1RF To guanfacine 1 mg PO TID 90 tabs 2RF Counseling and coordination of Care Pt. Self Management counseling: Exercise and General coping skills Details-Self Mgmt counseling: issues related to managing add sx Medication management counseling: Effectiveness, Side effects and Dosing range Details-Med Mgmt counseling: cautioned regarding possible orth hypotension Diagnosis and Prognosis Counseling: Accuracy of diagnosis, Impact of diagnosis on life functions and Adequacy of current interventions Details: I spent [39] minutes reviewing the record, seeing the patient and documenting in the medical record. Counseling provided to the patient/caregiver as outlined below. Addressed patient/caregiver concerns regarding current medication regime including effective adherence. Addressed patient/caregiver concerns regarding diagnosis and prognosis including accuracy of diagnosis, prognosis over time, impact of diagnosis. Addressed patient/caregiver concerns regarding impact of recent stressors. 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 HAD [place] AND QUESTION OF CVA IN THE PAST STATUS POST COCAINE INTOXICATION HAS BEEN SOBER Trauma History: NA Coding Level of Care Code Est Pt Level 3 (57934) Therapy 30m w/E&M (14043) Diagnoses ADHD F90.9 Generalized anxiety disorder F41.1 OCD (obsessive compulsive disorder) F42.9
--- OUTSIDE RECORDS SUMMARY | 2024-12-31 16:27 | XMS_ITS | Patient Health Record ---
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
[2024-12-31 19:18] VITALS: BP 146/92; PULSE 60
== END 2024-12-31 13:58 | disposition home or self-care (01) ==
LOC: HO.HOP 13:18
PROVIDERS: PCP Internal Medicine; Visit Provider Psychiatry & Neurology Psychiatry
DX: F90.9 Attention-deficit hyperactivity disorder, unspecified type (principal); F41.1 Generalized anxiety disorder; F42.9 Obsessive-compulsive disorder, unspecified
CPT/HCPCS: 90833; 99213

== ENCOUNTER → 2024-12-31 13:18 | Outpatient (BNVA) | payer MEDICARE, OTHER, SELFPAY | PROVIDERS: PCP Internal Medicine; Visit Provider Psychiatry & Neurology Psychiatry | DX: F90.9 Attention-deficit hyperactivity disorder, unspecified type (principal); F32.A Depression, unspecified; F41.1 Generalized anxiety disorder; F42.9 Obsessive-compulsive disorder, unspecified; Z71.89 Other specified counseling | CPT/HCPCS: 99212 ==

== ENCOUNTER 2025-03-24 13:47 | Outpatient (AMB) | payer MEDICARE, OTHER, SELFPAY ==
--- NOTE | 2025-03-24 14:06 | A.OFFPSYCH_ITS ---
Intake Intake Visit Reasons: depression Allergies No Known Allergies Allergy (Verified 12/24/22 22:37) HPI- Psychiatric Chief Complaint: depression HPI Narrative: Patient seen in psychiatric follow-up. Has had difficulty with hypertension ongoing anxiety periods of impulsivity seem to be decreasing Past Psychiatric History: The patient has a history of ADHD history of impulsivity past impulsive behaviors history of cocaine and alcohol use has been stable on a combination of guanfacine Lamictal Assessment and Plan Assessment & Plan (1) ADHD: Status: Acute Code(s): F90.9 - Attention-deficit hyperactivity disorder, unspecified type (2) Bipolar disorder, unspecified: Status: Acute Code(s): F31.9 - Bipolar disorder, unspecified (3) Generalized anxiety disorder: Status: Acute Code(s): F41.1 - Generalized anxiety disorder (4) OCD (obsessive compulsive disorder): Status: Acute Code(s): F42.9 - Obsessive-compulsive disorder, unspecified Plan Extensive discussion regarding patient's ADD reactivity need for hyperactivity in order to feel less agitated need for exercise and to stay busy. Extensive discussion regarding risks regarding hypertension urge patient to call his PCP he is on lisinopril 30 amlodipine 10 he does have guanfacine urge patient to take it regularly and to monitor blood pressure and to discuss with primary care. Discussed risks of untreated elevated blood pressure Counseling and coordination of Care Pt. Self Management counseling: Cognitive restructuring and General coping skills Medication management counseling: Effectiveness, Side effects and Dosing range Details-Med Mgmt counseling: Encourage ongoing use of Tenex half in the morning half in the afternoon 1 at bedtime again discussed its combined effects on anxiety Jevity and hypertension Diagnosis and Prognosis Counseling: Adequacy of current interventions Details: I spent [30] minutes reviewing the record, seeing the patient and documenting in the medical record. Counseling provided to the patient/caregiver as outlined below. Addressed patient/caregiver concerns regarding current medication regime including effective adherence. Addressed patient/caregiver concerns regarding diagnosis and prognosis including accuracy of diagnosis, prognosis over time, impact of diagnosis. Addressed patient/caregiver concerns regarding impact of recent stressors. 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 HAD [place] AND QUESTION OF CVA IN THE PAST STATUS POST COCAINE INTOXICATION HAS BEEN SOBER Trauma History: NA Coding Level of Care Code Est Pt Level 4 (24085) Diagnoses ADHD F90.9 Bipolar disorder, unspecified F31.9 Generalized anxiety disorder F41.1 OCD (obsessive compulsive disorder) F42.9
== END 2025-03-24 13:57 | disposition home or self-care (01) ==
LOC: HO.HOP 13:47
PROVIDERS: PCP Internal Medicine; Visit Provider Psychiatry & Neurology Psychiatry
DX: F90.9 Attention-deficit hyperactivity disorder, unspecified type (principal); F31.9 Bipolar disorder, unspecified; F41.1 Generalized anxiety disorder; F42.9 Obsessive-compulsive disorder, unspecified
CPT/HCPCS: 99214

== ENCOUNTER → 2025-03-24 13:47 | Outpatient (BNVA) | payer MEDICARE, OTHER, SELFPAY | PROVIDERS: PCP Internal Medicine; Visit Provider Psychiatry & Neurology Psychiatry | DX: F90.9 Attention-deficit hyperactivity disorder, unspecified type (principal); F31.9 Bipolar disorder, unspecified; F41.1 Generalized anxiety disorder; F42.9 Obsessive-compulsive disorder, unspecified | CPT/HCPCS: 99212 ==

== ENCOUNTER 2025-07-01 13:15 | Outpatient (AMB) | payer MEDICARE, OTHER, SELFPAY ==
--- NOTE | 2025-07-01 13:36 | MHC.OFFVISPS ---
Intake Intake Visit Reasons: depression Allergies No Known Allergies Allergy (Verified 12/24/22 22:37) HPI- Psychiatric Chief Complaint: depression HPI Narrative: Pt is a 74 yo male hx of adhd bipolar nos hx sub abuse relatively stable on lamictal guanfacine Pt seen in f/u mood generally stable anxiety does tend to use exercise outside runs lifts weights enjoys family time daughter goes to [facility] daughter is preg due in december Saw dr munoz has had recent blood work cxr labs were good chol 160 cxr nl goes [facility] lun h and gym 3 x wk does have urges at times sexually Past Psychiatric History: The patient has a history of ADHD history of impulsivity past impulsive behaviors history of cocaine and alcohol use has been stable on a combination of guanfacine Lamictal Mental Status Exam Mental Status Exam Narrative: Mental Status Exam Narrative: Appearance: Casually dressed Behavior: Cooperative psychomotor: inc energy Speech: nl Thought proccess goal-directed somewhat obsessional Thought content: Future oriented focused on ways to stay calm Mood: Anxious Affect: Appropriate to mood full affect SI:denies HI:denies VH/AH:none Delusions: None Insight/judgment: Insight and judgment seem improved stable Memory/cog: Intact Assessment and Plan Assessment & Plan (1) ADHD: Status: Acute Code(s): F90.9 - Attention-deficit hyperactivity disorder, unspecified type (2) Bipolar disorder, unspecified: Status: Acute Code(s): F31.9 - Bipolar disorder, unspecified (3) Generalized anxiety disorder: Status: Acute Code(s): F41.1 - Generalized anxiety disorder (4) Hypertension: Status: Acute Code(s): I10 - Essential (primary) hypertension Plan pt strongly urged to not drink did drink 1 x Medications: Changed From guanfacine 1 mg PO TID 90 tabs 2RF To guanfacine 1 mg PO BID 60 tabs 3RF Refilled lamotrigine 300 mg (2 x 150 mg) PO DAILY 180 tabs 3RF trazodone 100 mg PO BEDTIME 90 tabs 3RF Counseling and coordination of Care Pt. Self Management counseling: Exercise, Behavior activation and General coping skills Diagnosis and Prognosis Counseling: Adequacy of current interventions Details: I spent [30] minutes reviewing the record, seeing the patient and documenting in the medical record. Counseling provided to the patient/caregiver as outlined below. Addressed patient/caregiver concerns regarding current medication regime including effective adherence. Addressed patient/caregiver concerns regarding diagnosis and prognosis including accuracy of diagnosis, prognosis over time, impact of diagnosis. 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 HAD [place] AND QUESTION OF CVA IN THE PAST STATUS POST COCAINE INTOXICATION HAS BEEN SOBER Trauma History: NA Coding Level of Care Code Est Pt Level 3 (08604) Therapy 30m w/E&M (09642) Diagnoses ADHD F90.9 Bipolar disorder, unspecified F31.9 Generalized anxiety disorder F41.1 Hypertension I10
--- OUTSIDE RECORDS SUMMARY | 2025-07-01 17:54 | XMS_ITS | Patient Health Record ---
Author Organization [facility] Address [address] 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
== END 2025-07-01 14:03 | disposition home or self-care (01) ==
LOC: HO.HOP 13:15
PROVIDERS: PCP Internal Medicine; Visit Provider Psychiatry & Neurology Psychiatry
DX: F90.9 Attention-deficit hyperactivity disorder, unspecified type (principal); F31.9 Bipolar disorder, unspecified; F41.1 Generalized anxiety disorder; I10 Essential (primary) hypertension
CPT/HCPCS: 90833; 99213

== ENCOUNTER → 2025-07-01 13:15 | Outpatient (BNVA) | payer MEDICARE, OTHER, SELFPAY | PROVIDERS: PCP Internal Medicine; Visit Provider Psychiatry & Neurology Psychiatry | DX: F90.9 Attention-deficit hyperactivity disorder, unspecified type (principal); F31.9 Bipolar disorder, unspecified; F41.1 Generalized anxiety disorder; I10 Essential (primary) hypertension; F14.91 Cocaine use, unspecified, in remission | CPT/HCPCS: 99212 ==